=== PATIENT | male | born 1940 | race Caucasian/White ===

== ENCOUNTER → 2017-01-14 | Outpatient (CLI) | payer MEDICARE ==
--- NOTE | 2017-01-14 12:25 | REP ---
MRI BRAIN WITHOUT CONTRAST: HISTORY: Memory loss. COMPARISON: CT 07/07/2016. Areas of increased signal intensity on T2-weighted images are present in the periventricular and subcortical white matter. This represents small vessel ischemic disease. There is no intraparenchymal hemorrhage, infarct, mass or midline shift. The ventricular system and cortical sulci are dilated consistent with mild volume loss. There is no extracerebral collection. The sinuses are clear. IMPRESSION: 1. Small vessel ischemic disease. 2. Mild volume loss. Signed by Aubrey Perla MD 01/14/2017 12:36 P
== END ==
LOC: M RAD 10:18
PROVIDERS: ATTEND Psychiatry & Neurology Neurology
DX: F09 Unspecified mental disorder due to known physiological condition (principal); G93.9 Disorder of brain, unspecified; I73.9 Peripheral vascular disease, unspecified

== ENCOUNTER → 2017-02-10 | Outpatient (CLI) | payer MEDICARE | LOC: M LAB 15:55 | PROVIDERS: ATTEND Urology | DX: Z85.46 Personal history of malignant neoplasm of prostate (principal) ==

== ENCOUNTER 2020-09-27 11:55 | Inpatient (IN) | payer MEDICARE ==
[~2020-09-27] VITALS: Ht 172.7 cm; Wt 87.7 kg
--- NOTE | 2020-09-27 12:30 | REP ---
INDICATION: trauma. COMPARISON: None. TECHNIQUE: Helical scanning is acquired and overlapping 2 mm high resolution axial images were generated and reviewed at bone and soft tissue window settings. Coronal and sagittal multiplanar re-formations images are generated. FINDINGS: There is no evidence of cervical spine element fracture. No skull base fracture is seen. Cervical vertebral body heights are preserved. Alignment is normal. Facet joints are normally aligned bilaterally at each cervical level on multiplanar re-formations images. There is no evidence of intraspinal or paraspinal hematoma. No extra vertebral abnormality is seen. There is mild degenerative disc disease several levels in the cervical spine, most pronounced at C6-7. Osteoarthritic facet changes are seen in the midcervical spine. Vascular calcification is noted. IMPRESSION: Mild degenerative spondylosis changes. Otherwise negative cervical spine CT study. No fracture seen.. <Electronically signed by Cholo Daniel > 09/27/20 2026
--- NOTE | 2020-09-27 12:33 | REP ---
INDICATION: trauma. COMPARISON: 07/07/2016 TECHNIQUE: Noncontrast brain CT with coronal soft tissue reconstructions. FINDINGS: Lateral ventricles are midline symmetric and mildly dilated proportionate to the diffuse cerebral atrophy. This atrophy is greatest in the frontal and temporal lobes. Third and 4th ventricles also proportionate. Basal ganglia symmetric. There is heterogeneous low-attenuation white matter change bilaterally consistent with chronic small vessel ischemic disease. No intracranial hemorrhage, acute infarct, mass, mass effect or edema. No extra-axial abnormal fluid collection. Brainstem is intact. Cerebellum shows some atrophy without mass. No posterior fossa bleed. There are calcifications in the vertebrobasilar arteries. Mastoids, sphenoid, frontal and visible maxillary sinuses were clear. Some of the ethmoid air cells show mucosal thickening. Skull base and calvarium show no fracture or focal lesion. Visible orbits and contents intact IMPRESSION: 1. Chronic small vessel ischemic changes, stable. No acute infarct. 2. Mild ventriculomegaly with proportionate cerebral atrophy, unchanged. No intra or extra-axial hemorrhage, mass or mass effect. 3. No fracture skull base or calvarium. Some atherosclerotic calcifications of the vertebrobasilar arteries and minor ethmoid sinus mucosal thickening. Other sinuses clear. <Electronically signed by Av Taylor > 09/27/20 [id number]
[2020-09-27 15:32] LABS: BASO % 0.3 % (0.0-1.0); HEMATOCRIT 36.5 % (42.0-52.0); HEMOGLOBIN 11.7 g/dl (13.5-17.5); LYMPH # 0.6 10^3/uL (1.5-5.0); LYMPH % 18.7 % (24.0-44.0); MEAN CORPUSCULAR HEMOGLOBIN 32.1 pg (27.0-33.0); MEAN CORPUSCULAR HGB CONC 32.1 g/dl (32.0-36.5); MONO # 0.3 10^3/uL (0.0-0.8); MONO % 8.1 % (0.0-5.0); NEUTROPHILS # 2.3 10^3/uL (1.5-8.5); NEUTROPHILS % 72.6 % (36.0-66.0); PLATELET COUNT, AUTOMATED 129 10^3/uL (150-450); RED BLOOD COUNT 3.65 10^6/uL (4.30-6.10); WHITE BLOOD COUNT 3.2 10^3/uL (4.0-10.0)
[2020-09-27 16:09] LABS: ALBUMIN 3.3 GM/DL (3.2-5.2); ALT/SGPT 62 U/L (12-78); BILIRUBIN,DIRECT 0.2 MG/DL (0.0-0.2); BILIRUBIN,TOTAL 0.8 MG/DL (0.2-1.0); TOTAL PROTEIN 6.5 GM/DL (6.4-8.2)
[2020-09-27] MEDS ORDERED: NS 1,000 ML IV SCH (17:45)
[2020-09-27 18:08] LABS: CPK CREATINE PHOSPHOKINASE 6392 U/L (39-308)
--- NOTE | 2020-09-27 18:22 | REP ---
INDICATION: fall. COMPARISON: None. TECHNIQUE: Six views. FINDINGS: There are multiple surgical clips in inferiorly in the pelvis bilaterally. Lumbar vertebral body heights are preserved. Alignment is normal. There is no evidence of spondylolysis or spondylolisthesis. There is degenerative disc narrowing at L4-5 and discogenic spurring is seen at L4-5, L3-4, and L2-3. There is osteoarthritic facet sclerosis and hypertrophy bilaterally at L4-5 and L5-S1. Pedicles and posterior elements are intact. Sacrum and SI joints are unremarkable. Psoas margins are symmetric. IMPRESSION: Degenerative disc and osteoarthritic facet changes most pronounced at L4-5. No acute bony abnormality. No fracture seen. <Electronically signed by Cholo Daniel > 09/27/20 0433
[2020-09-27] MEDS ORDERED: lisinopriL 20 MG TAB PO ONE (18:30)
[2020-09-27] MEDS ORDERED: amLODIPine 10 MG TAB PO ONE (18:30)
--- NOTE | 2020-09-27 18:35 | HPEPDOC ---
General Date of Admission 09/27/20 Date of Service: Sep 27, 2020 Chief Complaint The patient is a 80-year-old male admitted with a reason for visit of FALL. Source: Patient Exam Limitations: Dementia Timing/Duration: 24 hours Severity: Moderate History of Present Illness Patient 80 years old male with past medical history of dementia presented hospital with history of multiple mechanical falls yesterday. According to his patient developed multiple mechanical falls during 24 hours, from the evening to the morning he was on the floor for unknown period of time. His stated that for past few days he has been having increased confusion from his baseline. In ER patient was found to have negative imaging study for fracture or stroke. Also patient was found to have elevated CPK of 6300, creatinine 1.2 According to his patient haven't seen doctors for years Home Medications Scheduled Aspirin (Aspirin) 81 Mg Tab.chew, 81 MG PO DAILY, (Reported) Azithromycin (Azithromycin) 250 Mg Tablet, 250 MG PO QPM, (Reported) Donepezil HCl (Donepezil HCl) 10 Mg Tablet, 10 MG PO DAILY, (Reported) Losartan Potassium (Losartan Potassium) 50 Mg Tablet, 50 MG PO DAILY, (Reported) Lovastatin (Lovastatin) 10 Mg Tablet, 10 MG PO QHS, (Reported) Melatonin (Melatonin) 5 Mg Tablet, 5 MG PO QHS, (Reported) Memantine HCl (Memantine HCl) 10 Mg Tablet, 10 MG PO BID, (Reported) Allergies Coded Allergies: No Known Allergies (Unverified , 09/27/20) Past Medical History Medical History Dementia Family History I can't obtain due to patient's dementia Social History * Smoker: Denies Alcohol: Denies Drugs: denies A-FIB/CHADSVASC A-FIB History Current/History of A-Fib/PAF?: No Current PO Anticoag Therapy: No Review of Systems Constitutional: Reports: Weakness; Denies: Chills, Fever Eyes: Denies: Pain ENT: Denies: Head Aches Skin: Denies: Rash Pulmonary: Denies: Dyspnea Cardiovascular: Denies: Chest Pain Gastrointestinal: Denies: Nausea Genitourinary: Denies: Dysuria Hematologic: Denies: Bruising Endocrine: Denies: Polydipsia Musculoskeletal: Denies: Neck Pain Neurological: Denies: Weakness Psych: Reports: Memory Issues Physical Examination General Exam: Positive: Cooperative Eye Exam: Positive: PERRLA ENT Exam: Positive: Atraumatic Neck Exam: Positive: Supple; Negative: JVD Chest Exam: Positive: Clear to auscultation Heart Exam: Positive: Rate Normal Telemetry: Positive: No significant arrhythmia Abdomen Exam: Positive: Normal bowel sounds Extremity Exam: Negative: Clubbing, Cyanosis Skin Exam: Positive: Nl turgor and temperature Neuro Exam: Positive: Cranial Nerves 3-12 NL Psych Exam: Negative: Oriented x 3 (oriented [address] and in time) Vital Signs Vital Signs Date Time Temp Pulse Resp B/P (MAP) Pulse Ox O2 Delivery O2 Flow Rate FiO2 09/27/20 17:32 81 09/27/20 17:02 92 09/27/20 16:32 168/71 (103) 09/27/20 15:00 Room Air 09/27/20 12:15 98.8 20 Laboratory Data Labs 24H Laboratory Tests 2 09/27/20 12:41: POC Glucose (Misc Panel) 110H, POC Sodium (Misc Panel) 142, POC Potassium (Misc Panel) 4.2, POC Chloride (Misc Panel) 107, POC Total CO2 (Misc Panel) 24.0, POC Blood Urea Nitrogen (Misc Panel 31H, POC Ionized Calcium (Misc Panel) 4.1L, POC Creatinine (Misc Panel) 1.2, POC Hematocrit (Misc Panel) 37.0L 09/27/20 12:43: POC Troponin I (Misc) 0.26H 09/27/20 15:19: Immature Granulocyte % (Auto) 0.3, Neutrophils (%) (Auto) 72.6H, Lymphocytes (%) (Auto) 18.7L, Monocytes (%) (Auto) 8.1H, Eosinophils (%) (Auto) 0.0, Basophils (%) (Auto) 0.3, Neutrophils # (Auto) 2.3, Lymphocytes # (Auto) 0.6L, Monocytes # (Auto) 0.3, Eosinophils # (Auto) 0.0, Basophils # (Auto) 0.0, Nucleated Red Blood Cells % (auto) 0.0, Total Bilirubin 0.8, Direct Bilirubin 0.2, Aspartate Amino Transf (AST/SGOT) 188H, Alanine Aminotransferase (ALT/SGPT) 62, Alkaline Phosphatase 59, Total Creatine Kinase 6392H, Total Protein 6.5, Albumin 3.3, Albumin/Globulin Ratio 1.0, Thyroid Stimulating Hormone (TSH) 0.510 09/27/20 16:06: POC Troponin I (Misc) 0.19H CBC/BMP Laboratory Tests 09/27/20 15:19 Assessment/Plan Patient 80 years old male with past medical history of dementia presented hospital with history of multiple mechanical falls yesterday. According to his patient developed multiple mechanical falls during 24 hours, from the evening to the morning he was on the floor for unknown period of time. His stated that for past few days he has been having increased confusion from his ba seth. In ER patient was found to have negative imaging study for fracture or stroke. Also patient was found to have elevated CPK of 6300, creatinine 1.2 According to his patient haven't seen doctors for years Problems (1) Falls Status: Acute Problem Text: Due to deconditioning PT/OT (2) Altered mental status Status: Chronic Problem Text: Secondary to deconditioning, dehydration Frequently orientation (3) Rhabdomyolysis Status: Acute Problem Text: IV fluid Continue to monitor CPK (4) Hypertension Status: Chronic Problem Text: Lisinopril and Norvasc added Plan / VTE VTE Prophylaxis Ordered?: Yes CHRIS BORREGO DO Sep 27, 2020 18:35
[2020-09-27] MEDS ORDERED: DONE10TA90 PO (18:45)
[2020-09-27] MEDS ORDERED: LOVA10TA PO (18:45)
[2020-09-27] MEDS ORDERED: MEMA10TA19 PO (18:45)
[2020-09-27] MEDS ORDERED: AZIT-12 PO (18:45)
[2020-09-27] MEDS ORDERED: ASPI81CH33 PO (18:45)
[2020-09-27] MEDS ORDERED: LOSA50TA88 PO (18:45)
[2020-09-27] MEDS ORDERED: MELA1TAB9 PO (18:46)
[2020-09-27 19:48] LABS: VITAMIN B12 LEVEL > 2000 PG/ML
[2020-09-27 19:49] LABS: FOLATE 22.5 NG/ML
[2020-09-27] MEDS: NS 1,000 ML IV SCH (22:01)
[2020-09-27] MEDS: ACETAMINOPHEN TAB 650MG DOSE (2X325MG) PO PRN (22:02)
[2020-09-27 22:40] VITALS: BP 142/60
[2020-09-27] MEDS: SIMVASTATIN 10 MG TAB PO SCH (23:54)
[2020-09-28] MEDS: NS 1,000 ML IV SCH ×4 (03:46→21:05)
[2020-09-28] MEDS: ACETAMINOPHEN TAB 650MG DOSE (2X325MG) PO PRN ×3 (05:55→21:04)
[2020-09-28 06:00] VITALS: BP 167/56
[2020-09-28 06:43] LABS: HEMATOCRIT 32.7 % (42.0-52.0); HEMOGLOBIN 11.1 g/dl (13.5-17.5); MEAN CORPUSCULAR HEMOGLOBIN 31.4 pg (27.0-33.0); MEAN CORPUSCULAR HGB CONC 33.9 g/dl (32.0-36.5); MEAN CORPUSCULAR VOLUME 92.4 fl (80.0-96.0); PLATELET COUNT, AUTOMATED 111 10^3/uL (150-450); RED BLOOD COUNT 3.54 10^6/uL (4.30-6.10); WHITE BLOOD COUNT 5.2 10^3/uL (4.0-10.0)
[2020-09-28 07:17] LABS: ALBUMIN 3.1 GM/DL (3.2-5.2); ALT/SGPT 68 U/L (12-78); BILIRUBIN,TOTAL 0.7 MG/DL (0.2-1.0); BLOOD UREA NITROGEN 23 MG/DL (7-18); CALCIUM LEVEL 7.9 MG/DL (8.8-10.2); CARBON DIOXIDE LEVEL 22 MEQ/L (21-32); CHLORIDE LEVEL 114 MEQ/L (98-107); CREATININE FOR GFR 1.18 MG/DL (0.70-1.30); GLOMERULAR FILTRATION RATE > 60.0 (>42); GLUCOSE, FASTING 106 MG/DL (70-100); MAGNESIUM LEVEL 1.7 MG/DL (1.8-2.4); POTASSIUM SERUM 3.4 MEQ/L (3.5-5.1); SODIUM LEVEL 146 MEQ/L (136-145); TOTAL PROTEIN 6.2 GM/DL (6.4-8.2)
[2020-09-28] MEDS ORDERED: POTASSIUM CHLORIDE 10 MEQ SR TABLET PO ONE (07:45)
[2020-09-28] MEDS: MAGNESIUM GLUCONATE 500 MG TAB PO SCH (08:37)
[2020-09-28] MEDS: LOSARTAN 50MG TABLET PO SCH (08:38)
[2020-09-28] MEDS: amLODIPine 10 MG TAB PO SCH (08:38)
[2020-09-28] MEDS: ASPIRIN 81 MG CHEW TABLET PO SCH (08:38)
[2020-09-28] MEDS: HEPARIN SOD (PORCINE) 5000UNITS/ML 1ML VIAL/SYRINGE SC SCH ×2 (08:39→21:05)
[2020-09-28 08:42] LABS: CPK CREATINE PHOSPHOKINASE 5154 U/L (39-308)
[2020-09-28] MEDS ORDERED: lisinopriL 20 MG TAB PO SCH (09:00)
--- NOTE | 2020-09-28 09:15 | ECGEPIP ---
[facility] - ED Test Date: 2020-09-27 Pat Name: WALLY BRUMFIELD Department: Room: - Gender: Male Bell Maker: RADHA : 1940 Requested By: Yissel Ortega Order Number: [id number] Reading MD: Yissel Ortega Measurements Intervals [place] Rate: 60 P: 57 TN: 135 QRS: 12 QRSD: 94 T: 16 QT: 424 QTc: 425 Interpretive Statements SINUS RHYTHM NONSPECIFIC T-WAVE ABNORMALITY baseline artifact may affect interpretation No prior Electronically Signed on 09-28-2020 9:15:29 EST by Yissel Ortega
[2020-09-28] MEDS: SIMVASTATIN 10 MG TAB PO SCH (21:04)
[2020-09-28 21:19] VITALS: BP 156/62
[2020-09-29] VITALS (11 sets, daily range): BP systolic 106–172; BP diastolic 53–88; O2SAT 95
[2020-09-29] MEDS: NS 1,000 ML IV SCH (04:32)
--- NOTE | 2020-09-29 08:08 | IPNPDOC ---
Text Note Date of Service The patient was seen on 09/28/20. NOTE Subjective: No any acute events overnight. Patient developed low-grade fever. Denies chills, shortness of breath, cough, diarrhea or dysuria Objective: GENERAL APPEARANCE: NAD HEENT: no scleral icterus, no JVD, EOMI CARDIOVASCULAR: S1S2 LUNGS: CTA ABDOMEN: soft & not tender w palpitation MUSCULOSKELETAL: no cyanosis, no swelling INTEGUMENT: no generalized palor NEUROLOGICAL: cranial nerve function from 2-12 intact intact, follows commands, speech not dysarthric Assessment/Plan Patient 80 years old male with past medical history of dementia presented hospital with history of multiple mechanical falls yesterday. According to his patient developed multiple mechanical falls during 24 hours, from the evening to the morning he was on the floor for unknown period of time. His stated that for past few days he has been having increased confusion from his baseline. In ER patient was found to have negative imaging study for fracture or stroke. Also patient was found to have elevated CPK of 6300, creatinine 1.2 According to his patient haven't seen doctors for years Problems (1) Falls Due to deconditioning PT/OT (2) Altered mental status Secondary to deconditioning, dehydration superimposed with advanced dementia Frequently orientation (3) Rhabdomyolysis Continue IV fluid CPK improved (4) Hypertension Lisinopril and Norvasc added Low-grade fever Patient does not have leukocytosis, if fever persistent we'll proceed with blood culture, x-ray, respiratory panel Tylenol for now VS,Fishbone, I+O VS, Fishbone, I+O Vital Signs Date Time Temp Pulse Resp B/P (MAP) Pulse Ox O2 Delivery O2 Flow Rate FiO2 09/29/20 06:00 99.2 78 22 165/75 (105) 90 Venturi Mask 3.0 23 I&O- Last 24 Hours up to 6 AM 09/29/20 06:00 Intake Total 1535 ml Output Total 0 ml Balance 1535 ml CHRIS BORREGO DO Sep 29, 2020 08:08
[2020-09-29] MEDS ORDERED: D5W/0.45% SODIUM CHLORIDE 1,000 ML IV SCH (08:15)
[2020-09-29] MEDS: amLODIPine 10 MG TAB PO SCH (09:01)
[2020-09-29] MEDS: MAGNESIUM GLUCONATE 500 MG TAB PO SCH (09:01)
[2020-09-29] MEDS: ASPIRIN 81 MG CHEW TABLET PO SCH (09:01)
[2020-09-29] MEDS: LOSARTAN 50MG TABLET PO SCH (09:01)
[2020-09-29 09:05] LABS: HEMATOCRIT 32.6 % (42.0-52.0); HEMOGLOBIN 11.1 g/dl (13.5-17.5); LYMPH # 0.5 10^3/uL (1.5-5.0); LYMPH % 6.9 % (24.0-44.0); MEAN CORPUSCULAR HEMOGLOBIN 32.2 pg (27.0-33.0); MEAN CORPUSCULAR VOLUME 94.5 fl (80.0-96.0); MONO # 0.2 10^3/uL (0.0-0.8); MONO % 3.1 % (0.0-5.0); NEUTROPHILS # 6.3 10^3/uL (1.5-8.5); NEUTROPHILS % 88.7 % (36.0-66.0); PLATELET COUNT, AUTOMATED 108 10^3/uL (150-450); RED BLOOD COUNT 3.45 10^6/uL (4.30-6.10); WHITE BLOOD COUNT 7.1 10^3/uL (4.0-10.0)
[2020-09-29 09:31] LABS: BLOOD UREA NITROGEN 24 MG/DL (7-18); CALCIUM LEVEL 7.7 MG/DL (8.8-10.2); CARBON DIOXIDE LEVEL 25 MEQ/L (21-32); CHLORIDE LEVEL 121 MEQ/L (98-107); CREATININE FOR GFR 1.06 MG/DL (0.70-1.30); GLOMERULAR FILTRATION RATE > 60.0 (>42); GLUCOSE, FASTING 111 MG/DL (70-100); POTASSIUM SERUM 3.6 MEQ/L (3.5-5.1); SODIUM LEVEL 153 MEQ/L (136-145)
--- NOTE | 2020-09-29 09:53 | REP ---
INDICATION: PNA?. COMPARISON: None. TECHNIQUE: AP AND LATERAL SEMI-ERECT FINDINGS: LUNGS ARE MILDLY HYPOINFLATED. THERE ARE EXTENSIVE THE CONSOLIDATIONS INVOLVING BOTH LUNGS WITH HEAVIEST INFILTRATES IN THE LEFT MID LOWER LUNG ZONE BUT MORE DIFFUSELY ON THE RIGHT. NO GROSS EFFUSION. RELATIVE SPARING OF LEFT LUNG APEX. HEART SIZE MILDLY PROMINENT EVEN ALLOWING FOR HYPOINFLATED PORTABLE TECHNIQUE TORTUOUS AORTA. BONES DEMINERALIZED WITH DEGENERATIVE CHANGES SPINE AND SHOULDERS.. IMPRESSION: 1. EXTENSIVE BILATERAL INFILTRATES RIGHT GREATER THAN LEFT BUT THE CONSOLIDATION IS MORE DENSE IN THE LEFT MID AND LOWER LUNG ZONE. NO GROSS EFFUSION. OTHER LUNG LESIONS COULD CLEARLY BE OBSCURED WITH THIS APPEARANCE. 2. SOME CARDIOMEGALY NOTED. TORTUOUS AORTA. DEGENERATIVE CHANGES SPINE AND SHOULDERS WITH DEMINERALIZATION. <Electronically signed by Av Taylor > 09/29/20 3038
[2020-09-29] MEDS: HEPARIN SOD (PORCINE) 5000UNITS/ML 1ML VIAL/SYRINGE SC SCH (10:04)
[2020-09-29] MEDS: cefTRIAXone SOD 1 GM in D5W MINI-BAG PLUS 50 ML IV SCH ×2 (10:11→20:34)
[2020-09-29] MEDS ORDERED: D5W/LR 1,000 ML IV SCH (11:30)
[2020-09-29] MEDS ORDERED: ALBUTEROL 90 MCG/ACT 8GM HFA INHALER INH PRN (11:45)
[2020-09-29] MEDS: AZITHROMYCIN INJ 500 MG, VIAL MATE ADAPTER 1 EACH in D5W 250 ML IV SCH (11:55)
[2020-09-29] MEDS ORDERED: FUROSEMIDE 40MG/4ML VIAL (J1940) IV ONE ×2 (12:30→17:00)
[2020-09-29 12:36] LABS: ABG HCO3 22.2 MEQ/L (22.0-26.0); ABG PARTIAL PRESSURE CO2 31.6 mmHg (35.0-45.0); ABG PARTIAL PRESSURE O2 59.5 mmHg (75.0-100.0); ABG STANDARD HCO3 23.6 MEQ/L (22.0-26.0); ABG TOTAL CO2 23.1 MEQ/L (23.0-31.0); ABG pH (ARTERIAL) 7.464 UNITS (7.350-7.450)
[2020-09-29] MEDS: ACETAMINOPHEN TAB 650MG DOSE (2X325MG) PO PRN ×2 (12:42→17:58)
[2020-09-29] MEDS: IPRATROPIUM 0.5MG/ALBUTEROL 2.5MG INH SOL UD 3ML (DUONEB) INH SCH ×4 (12:50→23:43)
--- NOTE | 2020-09-29 13:52 | IPNPDOC ---
Text Note Date of Service The patient was seen on 09/29/20. NOTE Subjective: Patient was febrile overnight with dyspnea. His oxygen requirements increased to 3 L of oxygen Objective: GENERAL APPEARANCE: NAD HEENT: no scleral icterus, no JVD, EOMI CARDIOVASCULAR: S1S2 LUNGS: Mild rales bilaterally, diminished lung sounds ABDOMEN: soft & not tender w palpitation MUSCULOSKELETAL: +2 leg swelling INTEGUMENT: no generalized palor NEUROLOGICAL: cranial nerve function from 2-12 intact intact, follows commands, speech not dysarthric Assessment/Plan Patient 80 years old male with past medical [facility] of [facility] with history of multiple mechanical falls yesterday. According to his patient developed multiple mechanical falls during 24 hours, from the evening to the morning he was on the floor for unknown period of time. His stated that for past few days he has been having increased confusion from his baseline. In ER patient was found to have negative imaging study for fracture or stroke. Also patient was found to have elevated CPK of 6300, creatinine 1.2 According to his patient haven't seen doctors for years Dyspnea Most likely secondary to volume overload due to intensive hydration secondary to rhabdomyolysis. Patient does not have leukocytosis Lasix IV Stopped fluid Due to fever and dyspnea I will proceed with CT chest Procalcitonin ordered Azithromycin and ceftriaxone started Problems Falls Due to deconditioning PT/OT Altered mental status/metabolic encephalopathy Secondary to deconditioning, dehydration superimposed with advanced dementia Frequently orientation Rhabdomyolysis CPK improved Hypertension Lisinopril and Norvasc added Low-grade fever blood culture, respiratory panel ordered Tylenol for now VS,Fishbone, I+O VS, Fishbone, I+O Laboratory Tests 09/29/20 08:30 Vital Signs Date Time Temp Pulse Resp B/P (MAP) Pulse Ox O2 Delivery O2 Flow Rate FiO2 09/29/20 12:09 3.0 24 09/29/20 11:56 101.6 71 24 152/67 (95) 91 Non-Rebreather I&O- Last 24 Hours up to 6 AM 09/29/20 06:00 Intake Total 1535 ml Output Total 0 ml Balance 1535 ml CHRIS BORREGO DO Sep 29, 2020 13:52
[2020-09-29 15:09] LABS: ALBUMIN 2.9 GM/DL (3.2-5.2); ALT/SGPT 89 U/L (12-78); BILIRUBIN,DIRECT 0.4 MG/DL (0.0-0.2); BILIRUBIN,TOTAL 0.8 MG/DL (0.2-1.0); TOTAL PROTEIN 6.1 GM/DL (6.4-8.2)
[2020-09-29] MEDS: dexameTHASONE 4 MG/ML 1ML VIAL (J1100 PER 1MG) IV SCH (15:24)
[2020-09-29] MEDS ORDERED: REMDESIVIR (INVESTIGATIONAL) 200 MG in NS 210 ML IV ONE (17:00)
[2020-09-29 17:26] LABS: INR 1.14; PROTHROMBIN TIME 14.9 SECONDS (12.5-14.3)
[2020-09-29 17:27] LABS: FIBRINOGEN 789 MG/DL (221-452); PARTIAL THROMBOPLASTIN TIME 39.9 SECONDS (24.2-38.5)
[2020-09-29 17:28] LABS: FIBRINOGEN 776 MG/DL (221-452); INR 1.22; PROTHROMBIN TIME 15.7 SECONDS (12.5-14.3)
[2020-09-29 17:29] LABS: PARTIAL THROMBOPLASTIN TIME 41.1 SECONDS (24.2-38.5)
[2020-09-29 17:49] LABS: D-DIMER QUANT > 4000 ng/ml (<500)
[2020-09-29] MEDS ORDERED: SODIUM CHLORIDE 0.9% INJ 10 ML SYR IV ONE (19:00)
[2020-09-29] MEDS: ENOXAPARIN 40MG/0.4ML SYRINGE (J1650 PER 10MG) SC SCH (20:34)
[2020-09-29 22:00] LABS: CALCIUM LEVEL 7.9 MG/DL (8.8-10.2); CREATININE FOR GFR 1.36 MG/DL (0.70-1.30); GLOMERULAR FILTRATION RATE 53.8 (>42); POTASSIUM SERUM 3.6 MEQ/L (3.5-5.1)
[2020-09-29 22:42] LABS: ALBUMIN 3.1 GM/DL (3.2-5.2); BILIRUBIN,DIRECT 0.3 MG/DL (0.0-0.2); BILIRUBIN,TOTAL 0.8 MG/DL (0.2-1.0); CALCIUM LEVEL 7.8 MG/DL (8.8-10.2); CK-MB VALUE MASS 5.1 NG/ML (<3.6); CREATININE FOR GFR 1.28 MG/DL (0.70-1.30); GLOMERULAR FILTRATION RATE 57.7 (>42); MB/CK RELATIVE INDEX 0.09 (< OR =4); POTASSIUM SERUM 3.4 MEQ/L (3.5-5.1); TOTAL PROTEIN 6.5 GM/DL (6.4-8.2); TROPONIN I 0.43 NG/ML (< 0.10)
[2020-09-30] VITALS (24 sets, daily range): BP systolic 101–149; BP diastolic 48–75; O2SAT 89–96
[2020-09-30 00:02] LABS: C REACTIVE PROTEIN QUANTITATIV 24.4 MG/DL (0.00-0.30)
[2020-09-30 03:12] LABS: HEMOGLOBIN 11.3 g/dl (13.5-17.5); LYMPH # 0.5 10^3/uL (1.5-5.0); LYMPH % 4.7 % (24.0-44.0); MEAN CORPUSCULAR HEMOGLOBIN 31.5 pg (27.0-33.0); MEAN CORPUSCULAR HGB CONC 34.2 g/dl (32.0-36.5); MEAN CORPUSCULAR VOLUME 91.9 fl (80.0-96.0); MONO # 0.2 10^3/uL (0.0-0.8); MONO % 1.5 % (0.0-5.0); PLATELET COUNT, AUTOMATED 119 10^3/uL (150-450); RED BLOOD COUNT 3.59 10^6/uL (4.30-6.10); WHITE BLOOD COUNT 9.7 10^3/uL (4.0-10.0)
[2020-09-30 03:48] LABS: C REACTIVE PROTEIN QUANTITATIV 26.9 MG/DL (0.00-0.30); INR 1.12; PROTHROMBIN TIME 14.7 SECONDS (12.5-14.3); TROPONIN I 0.36 NG/ML (< 0.10)
[2020-09-30 03:49] LABS: PARTIAL THROMBOPLASTIN TIME 40.1 SECONDS (24.2-38.5)
[2020-09-30 04:05] LABS: D-DIMER QUANT 3833.89 ng/ml (<500)
[2020-09-30] MEDS: IPRATROPIUM 0.5MG/ALBUTEROL 2.5MG INH SOL UD 3ML (DUONEB) INH SCH ×5 (04:15→20:41)
[2020-09-30] MEDS: ACETAMINOPHEN TAB 650MG DOSE (2X325MG) PO PRN ×2 (05:15→22:24)
[2020-09-30 07:38] LABS: ALBUMIN 2.7 GM/DL (3.2-5.2); BILIRUBIN,DIRECT 0.3 MG/DL (0.0-0.2); BILIRUBIN,TOTAL 0.6 MG/DL (0.2-1.0); CALCIUM LEVEL 8.1 MG/DL (8.8-10.2); CREATININE FOR GFR 1.43 MG/DL (0.70-1.30); GLOMERULAR FILTRATION RATE 50.8 (>42); MAGNESIUM LEVEL 1.7 MG/DL (1.8-2.4); TOTAL PROTEIN 6.8 GM/DL (6.4-8.2)
[2020-09-30] MEDS ORDERED: D5W 1,000 ML IV SCH (08:00)
[2020-09-30] MEDS ORDERED: POTASSIUM CHLORIDE 10 MEQ SR TABLET PO ONE (09:00)
[2020-09-30] MEDS ORDERED: KCL 10MEQ/100ML SWI (KRUN) 10 MEQ in IV 1 EA IV ONE (09:00)
[2020-09-30] MEDS: ASPIRIN 81 MG CHEW TABLET PO SCH (09:11)
[2020-09-30] MEDS: amLODIPine 10 MG TAB PO SCH (09:11)
[2020-09-30] MEDS: LOSARTAN 50MG TABLET PO SCH (09:13)
[2020-09-30] MEDS: MAGNESIUM GLUCONATE 500 MG TAB PO SCH (09:13)
[2020-09-30] MEDS: dexameTHASONE 4 MG/ML 1ML VIAL (J1100 PER 1MG) IV SCH (09:14)
[2020-09-30] MEDS: ENOXAPARIN 40MG/0.4ML SYRINGE (J1650 PER 10MG) SC SCH ×2 (09:14→20:26)
[2020-09-30] MEDS: cefTRIAXone SOD 1 GM in D5W MINI-BAG PLUS 50 ML IV SCH ×2 (09:15→20:26)
[2020-09-30 10:53] LABS: CALCIUM LEVEL 8.7 MG/DL (8.8-10.2); CREATININE FOR GFR 1.48 MG/DL (0.70-1.30); GLOMERULAR FILTRATION RATE 48.8 (>42); POTASSIUM SERUM 3.5 MEQ/L (3.5-5.1)
--- NOTE | 2020-09-30 11:25 | IPNPDOC ---
Text Note Date of Service The patient was seen on 09/30/20. NOTE Subjective: Patient continues to have high oxygen requirements in the ICU set tings. Low-grade fever overnight Objective: GENERAL APPEARANCE: NAD HEENT: no scleral icterus, no JVD, EOMI CARDIOVASCULAR: S1S2 LUNGS: Mild rales bilaterally, diminished lung sounds ABDOMEN: soft & not tender w palpitation MUSCULOSKELETAL: +2 leg swelling INTEGUMENT: no generalized palor NEUROLOGICAL: cranial nerve function from 2-12 intact intact, follows commands, speech not dysarthric Assessment/Plan Patient 80 years old male with past medical history of dementia presented hospital with history of multiple mechanical falls yesterday. According to his patient developed multiple mechanical falls during 24 hours, from the evening to the morning he was on the floor for unknown period of time. His stated that for past few days he has been having increased confusion from his ba seline. In ER patient was found to have negative imaging study for fracture or stroke. Also patient was found to have elevated CPK of 6300, creatinine 1.2 According to his patient haven't seen doctors for years. Patient was tested positive for COVID 19 Acute hypoxemic respiratory failure Secondary to viral pneumonia due to COVID 19 Viral pneumonia due to COVID 19 Labs ordered according to Covid protocol. Started steroids, anticoagulation therapy. I discussed the case with Dr. Whitney, we started remdesevir X-ray showed EXTENSIVE BILATERAL INFILTRATES RIGHT GREATER THAN LEFT BUT THE CON SOLIDATION IS MORE DENSE IN THE LEFT MID AND LOWER LUNG ZONE. NO GROSS EFFUSION Will continue antibiotics, await procalcitonin result Mechanical falls Due to deconditioning PT/OT Altered mental status/metabolic encephalopathy Multifactorial. Due to infectious process superimposed with advanced dementia Rhabdomyolysis CPK improved Due to hypervolemia we stopped the fluid yesterday Hypernatremia Sodium 150 Gentle IV fluid D5 half normal saline Hypertension Lisinopril and Norvasc added Low-grade fever Tylenol for now VS,Fishbone, I+O VS, Fishbone, I+O Laboratory Tests 09/29/20 17:03 09/29/20 21:20 09/30/20 02:30 09/30/20 10:00 Vital Signs Date Time Temp Pulse Resp B/P (MAP) Pulse Ox O2 Delivery O2 Flow Rate FiO2 09/30/20 10:00 99.9 86 30 149/66 (93) 93 HVNI-Vapotherm 40.0 75 I&O- Last 24 Hours up to 6 AM 09/30/20 06:00 Intake Total 1035 ml Output Total 1800 ml Balance -765 ml CHRIS BORREGO DO Sep 30, 2020 11:25
[2020-09-30] MEDS: AZITHROMYCIN INJ 500 MG, VIAL MATE ADAPTER 1 EACH in D5W 250 ML IV SCH (12:08)
[2020-09-30] MEDS: PANTOPRAZOLE 40MG VIAL (C9113 PER 1) IV SCH (12:09)
[2020-09-30] MEDS ORDERED: D5W/0.45% SODIUM CHLORIDE 1,000 ML IV SCH (12:15)
[2020-09-30 16:20] LABS: CALCIUM LEVEL 8.1 MG/DL (8.8-10.2); CREATININE FOR GFR 1.35 MG/DL (0.70-1.30); GLOMERULAR FILTRATION RATE 54.3 (>42); POTASSIUM SERUM 3.4 MEQ/L (3.5-5.1); TROPONIN I 0.24 NG/ML (< 0.10)
[2020-09-30] MEDS: REMDESIVIR (INVESTIGATIONAL) 100 MG in NS 230 ML IV SCH (18:07)
[2020-09-30] MEDS: SODIUM CHLORIDE 0.9% INJ 10 ML SYR IV SCH (19:30)
[2020-09-30 23:26] LABS: CALCIUM LEVEL 7.5 MG/DL (8.8-10.2); CREATININE FOR GFR 1.29 MG/DL (0.70-1.30); GLOMERULAR FILTRATION RATE 57.2 (>42); POTASSIUM SERUM 3.6 MEQ/L (3.5-5.1)
[2020-10-01] VITALS (64 sets, daily range): BP systolic 76–169; BP diastolic 45–85
[2020-10-01] MEDS: IPRATROPIUM 0.5MG/ALBUTEROL 2.5MG INH SOL UD 3ML (DUONEB) INH SCH ×3 (00:12→08:00)
[2020-10-01 05:23] LABS: BASO % 0.2 % (0.0-1.0); EOS % 0.1 % (0.0-3.0); HEMATOCRIT 33.1 % (42.0-52.0); HEMOGLOBIN 11.4 g/dl (13.5-17.5); LYMPH # 0.4 10^3/uL (1.5-5.0); LYMPH % 3.9 % (24.0-44.0); MEAN CORPUSCULAR HEMOGLOBIN 31.6 pg (27.0-33.0); MEAN CORPUSCULAR HGB CONC 34.4 g/dl (32.0-36.5); MEAN CORPUSCULAR VOLUME 91.7 fl (80.0-96.0); MONO # 0.3 10^3/uL (0.0-0.8); MONO % 2.7 % (0.0-5.0); NEUTROPHILS # 8.8 10^3/uL (1.5-8.5); NEUTROPHILS % 92.6 % (36.0-66.0); PLATELET COUNT, AUTOMATED 139 10^3/uL (150-450); RED BLOOD COUNT 3.61 10^6/uL (4.30-6.10); WHITE BLOOD COUNT 9.5 10^3/uL (4.0-10.0)
[2020-10-01 05:34] LABS: INR 1.21; PROTHROMBIN TIME 15.6 SECONDS (12.5-14.3)
[2020-10-01 05:35] LABS: PARTIAL THROMBOPLASTIN TIME 41.8 SECONDS (24.2-38.5)
[2020-10-01 05:49] LABS: ALBUMIN 2.5 GM/DL (3.2-5.2); BILIRUBIN,DIRECT 0.4 MG/DL (0.0-0.2); BILIRUBIN,TOTAL 0.6 MG/DL (0.2-1.0); MAGNESIUM LEVEL 1.9 MG/DL (1.8-2.4); TOTAL PROTEIN 5.9 GM/DL (6.4-8.2)
[2020-10-01 05:51] LABS: CALCIUM LEVEL 7.8 MG/DL (8.8-10.2); CREATININE FOR GFR 1.26 MG/DL (0.70-1.30); D-DIMER QUANT 3490.92 ng/ml (<500); GLOMERULAR FILTRATION RATE 58.8 (>42); POTASSIUM SERUM 3.4 MEQ/L (3.5-5.1); TROPONIN I 0.15 NG/ML (< 0.10)
[2020-10-01] MEDS: PANTOPRAZOLE 40MG VIAL (C9113 PER 1) IV SCH (08:05)
[2020-10-01] MEDS: LOSARTAN 50MG TABLET PO SCH (08:06)
[2020-10-01] MEDS: dexameTHASONE 4 MG/ML 1ML VIAL (J1100 PER 1MG) IV SCH (08:06)
[2020-10-01] MEDS: ASPIRIN 81 MG CHEW TABLET PO SCH (08:06)
[2020-10-01] MEDS: ENOXAPARIN 40MG/0.4ML SYRINGE (J1650 PER 10MG) SC SCH (08:06)
[2020-10-01] MEDS: MAGNESIUM GLUCONATE 500 MG TAB PO SCH (08:07)
[2020-10-01] MEDS: amLODIPine 10 MG TAB PO SCH (08:08)
[2020-10-01] MEDS ORDERED: PROPOFOL 1,000 MG/100 ML VIAL As Ordered ONE (08:40)
[2020-10-01] MEDS ORDERED: GLUCAGON INJ 1MG VIAL SC PRN (09:00)
[2020-10-01] MEDS: ALBUTEROL 90 MCG/ACT 8GM HFA INHALER INH SCH ×4 (09:00→21:00)
[2020-10-01] MEDS ORDERED: GLUCOSE 4GM CHEW TABLET PO PRN (09:00)
[2020-10-01] MEDS ORDERED: DEXTROSE 50% 50 ML SYRINGE IV PRN (09:00)
[2020-10-01] MEDS ORDERED: ENOXAPARIN 30MG/0.3ML SYRINGE (J1650 PER 10MG) SC ONE (09:15)
[2020-10-01 10:00] LABS: HEPATITIS B SURFACE ANTIGEN NEGATIVE (NEGATIVE)
[2020-10-01 10:29] LABS: HIV 1&2 SCREEN CENTAUR NEGATIVE (NEGATIVE)
[2020-10-01] MEDS: CHLORHEXIDINE GLUCONATE 0.12 % 15ML UDC (PERIDEX ORAL RINSE) MT SCH ×2 (10:58→20:07)
[2020-10-01] MEDS: cefTRIAXone SOD 1 GM in D5W MINI-BAG PLUS 50 ML IV SCH ×2 (10:59→20:07)
--- NOTE | 2020-10-01 11:04 | REP ---
INDICATION: S/P Intubation. COMPARISON: 09/29/2020 TECHNIQUE: AP portable semi-erect. FINDINGS: There is an endotracheal tube now present with its tip abutting the right side of the tracheal airway and about 4 cm above the pola. Nasogastric tube is now placed with its tip the into the stomach in the left upper quadrant. The proximal port is below the GE junction. The lung beal show diffuse interstitial alveolar infiltrates. The density of the infiltrates appears lessened and there is some some improvement in inspiration for this image. There are no other changes. IMPRESSION: Status post intubation with the endotracheal tube abutting the tracheal sidewall on the right and its tip 4 cm from the pola. Nasogastric tube into the stomach in the left upper quadrant. Better level of inflation overall and some of mild decreased in parenchymal density of the diffuse infiltrates. <Electronically signed by Av Taylor > 10/01/20 1100
[2020-10-01 11:16] LABS: ABG BASE EXCESS 0.3 (-2.0-2.0); ABG HCO3 26.4 MEQ/L (22.0-26.0); ABG O2 SATURATION 96.3 % (95.0-99.0); ABG PARTIAL PRESSURE CO2 48.8 mmHg (35.0-45.0); ABG PARTIAL PRESSURE O2 91.5 mmHg (75.0-100.0); ABG STANDARD HCO3 24.7 MEQ/L (22.0-26.0); ABG TOTAL CO2 27.9 MEQ/L (23.0-31.0); ABG pH (ARTERIAL) 7.351 UNITS (7.350-7.450)
[2020-10-01] MEDS: KCL 40MEQ IN D5/0.45NS 1000ML 1,000 ML IV SCH ×2 (11:16→20:09)
--- NOTE | 2020-10-01 11:50 | CCN ---
DATE: 09/29/2020 Critical care time was 48 minutes. Most of this was in regard to treatment for COVID. Of note, all the exam from the patient was remote from the door. I could see clearly through the glass door and discuss with the nursing and the patient what was going on. The patient himself if quite anxious, shivering at times. Transferred to the intensive care unit (ICU) for worsening respiratory failure, hypoxia. Apparently he had been admitted for falls then later developed fever. Evaluated for the possibility of COVID, screened positive. Chest x-ray was obtained showing diffuse infiltrate bilaterally, and he has had progressive increasing oxygen requirements over this time. Of note, the patient was receiving continuous intravenous (IV) fluids because of an elevated creatine kinase (CK). He does have mild elevation in his liver function tests (LFTs). Given his severity of hypoxia and the high likelihood of from COVID based on age and comorbidities, it has been determined that although he does have some elevation in his LFTs, that we will start remdesivir. The patient is awake, able to answer some questions and other times is confused. At this point in time he does not demonstrate any tachypnea while on Vapotherm, currently requiring 40 liters at 0.75 FiO2. He has already been started on higher-dose Lovenox. I have discontinued his statin therapy because of his liver enzymes and elevated CK. He is currently on Decadron. He is also on ceftriaxone, azithromycin, which we will de-escalate likely in the next couple days if he does not show any signs of concomitant bacterial infection. PHYSICAL EXAMINATION: Temperature is 100.6, pulse is 71, respiratory rate 18-25, blood pressure is 152/67, oxygen saturation as mentioned above GENERAL: Agitated but consolable. He appears volume overloaded. No dry mucous membranes. PULMONARY: Breath sounds reveal rales bilaterally EXTREMITIES: Pitting edema with dependent venous stasis changes. As mentioned, this is externally from the room. LABORATORY EVALUATION: Shows a white blood cell count of 7.1, up from 3.2 on September 27, hemoglobin 11.1, neutrophils 88.7. Sodium is up to 153 with an admission sodium of 142 two days ago. Potassium is 3.6, chloride 12. The sodium and chloride elevation likely from fluid administration. Carbon dioxide level is 25, anion gap 7, BUN 24 and creatinine 1.06. Calcium is 7.7. AST has been climbing and is now 244 today with an ALT of 89. CK is down to 5115. Albumin is down to 2.9. Arterial blood gas from November 16 shows a pH of 7.46, pCO2 of 32, and a pO2 of 60 on an unknown level of oxygen. Chest x-ray shows diffuse infiltrate consistent with COVID. Also differential incudes pulmonary edema, cadiogenic versus noncardiogenic. IMPRESSION: Severe hypoxic respiratory failure secondary to COVID/SARS. I have started remdesivir due to the higher likelihood of and complications from COVID. I understand that this should be monitored closely while patient has elevated liver function tests (LFTs). At this point of time I have discussed it with an infectious disease colleague, and we both agree that the benefit of taking the medications outweighs the potential risk. I have stopped the statin therapy. Hopefully this will also help. At the same time, I will rule out myocardial infarction, as this has not been done. He will remain on high-dose Lovenox. Will continue antibiotic therapy until it is clear that there is no concomitant bacterial infection, especially with the fever and significant increase in leukocytosis despite this being a "normal" number. There has been a four-point elevation in the past 2 days. Overall the patient remains very ill, has a very poor prognosis. Will continue to monitor oxygen requirement and liver function testing. Critical care time was 48 minutes. This excludes all procedures. MTDD
--- NOTE | 2020-10-01 11:52 | CCN ---
DATE: 09/30/2020 CRITICAL CARE TIME: 33 minutes. This excludes all procedures. HISTORY OF PRESENT ILLNESS: I am monitoring the patient due to his COVID illness. Primary physician is on board and conducting physical exams. The patient was started on remdesivir overnight. He has been on dexamethasone, I am not exactly sure why dexamethasone was chosen over Solu-Medrol. However, I did not discontinue this. He is more hyponatremic today likely secondary to dehydration. IV Lasix was administered yesterday. Primary team has started gentle hydration. I have cautioned about the possibility of pulmonary edema. There is a slight increase in creatinine and BUN suggesting dehydration. Overall the patient has no complaints. PHYSICAL EXAMINATION: My physical exam is from the doorway to decrease exposure to limited staff. Overnight the patient's fever is trending down. Highest fever was 102.2 at 1800. This morning it is 100.4. Respiratory rate remains elevated. Pulse is 97. Blood pressure is 133/61 with a mean arterial pressure of 85. Oxygen saturation is 95% on 45 liters, FiO2 0.75. In general the patient is sleeping but easily arousable. From the doorway and the nursing evaluation, the patient has no scleral icterus. Pupils are equal and reactive to light. Mucous membranes are slightly dry. Tongue is midline. Neck is supple. Lymph: There is no cervical, supraclavicular, or axillary lymphadenopathy according to the nursing evaluation. Pulmonary: Breath sounds are abnormal with decreased air entry. Crackles at the bases. No wheeze or rhonchi. Cardiac: Tachycardic at times but currently regular. S1, S2, without audible murmurs, rubs or gallops. LABORATORY: Laboratory evaluation shows sodium 150, potassium 3.0, chloride 115, bicarb 28, BUN 27, creatinine 1.43. Fasting glucose is 161. Calcium is 8.1, magnesium 1.7. Ferritin is elevated at 1,064. Total bilirubin is normal. AST is down from 278 last evening to 222. ALT is down to 95. LDH is down to 653. CK was not checked this morning. I have already added it to the a.m. labs. BNP is decreased. However, troponin is also trending down from a max of 0.43 and I have ordered a procalcitonin this morning which is still pending. White blood cell count is 9.7 up from admission white blood cell count of 3.2. Hemoglobin is 11.3, platelet count of 119. Chest x-ray not performed this morning to avoid exposure. IMPRESSION/PLAN: 1. COVID-induced hypoxia, high risk need for intubation. I will closely monitor oxygen saturations, trying to avoid intubation if at all possible. According to the patient's advanced directives, he wishes to have a trial of intubation but is otherwise DO NOT RESUSCITATE. Remdesivir was started yesterday. Remains on steroids. 2. Hypernatremia likely secondary to some dehydration. Primary team started gentle hydration. No further diuresis should be attempted at this point in time. 3. Renal failure, mild. We will continue to monitor. Delicate fluid balance in attempts to keep him on the dry side in order to avoid intubation. 4. Liver impairment, slight minimal decline in AST and ALT. We will continue to monitor, especially while on Remdesivir. 5. Elevated CK. We will recheck this morning. 6. Deep venous thrombosis (DVT) prophylaxis. The patient is on Lovenox 40 mg subcu every 12 hours. 7. Gastrointestinal (GI) prophylaxis. I will add this morning. The patient remains critically ill. At this point in time I am not physically examining the patient. I am doing so from the doorway and having nurses input. This is to avoid exposure to the critical care physician, staff. However, the primary team has been performing physical exam on a daily basis. YONATHAN
[2020-10-01] MEDS: MIDAZOLAM INJ 2MG/2ML VIAL (J2250 PER 1MG) IV PRN ×2 (11:56→12:17)
--- NOTE | 2020-10-01 11:56 | CCN ---
DATE: 10/01/2020 CRITICAL CARE TIME: One hour and 37 minutes, this excludes all procedures. SUBJECTIVE: On my arrival, the patient had been hypoxic since 4 a.m. and I was not notified of this. His oxygen saturations had not been above 85% and when I went to see the patient, he was down to 75% on 40 liters on 100% FiO2. With some help from the nurse inside the room, oxygen saturation improved to approximately 86%. I called the COVID intubation team for intubation and they are at bedside to intubate. The patient appeared somnolent, is agitated at times, and continues with dementia and altered mental status. OBJECTIVE: Physical examination not performed by myself. Will perform telemedicine visit after intubation. VITAL SIGNS: Temperature currently is 100.1, pulse 80, blood pressure 134/66, oxygen saturation 82% on 40 liters on 100% FiO2. GENERAL: As mentioned, vision from the door the patient is fairly sedated and obtunded. HEENT: Mucous membranes appear dry. EXTREMITIES: Left lower extremity appears erythematous with some pitting edema. No ultrasound has been performed of this lower extremity. ABDOMEN: Soft, nontender, and nondistended with no hepatosplenomegaly according to the nurse. RESPIRATORY: Rales bilaterally. CARDIAC: Reportedly regular S1, S2 without audible murmur, rub, or gallop. As mentioned above, the physical exam was performed by the nurse and observed by myself through the glass doors. I will perform a telemedicine visit with a better physical exam later this evening. LABORATORY EVALUATION: Shows hypernatremia and hypokalemia with sodium 151 and potassium 3.4, chloride 16, bicarb 27, BUN 40, creatinine 1.26 with a PT of 15.6, INR 1.2, and a PTT of 42. White blood cell count is 9.5 with a hemoglobin of 11.4, platelet count 139,000, neutrophilia of 92, ferritin of 14.6, direct bilirubin of 0.4, AST 146, ALT 83, troponin 0.15. Hypoalbuminemia 2.5. IMAGING: Chest x-ray not performed today due to decrease the risk of COVID exposure. Will perform one after intubation. IMPRESSION: 1. COVID pneumonia with severe hypoxia. Attempted to avoid intubation; however, the patient is severely hypoxic at this point in time and is not tolerating maximal Vapotherm at 40 L on 100%. I do not believe BiPAP will be anymore helpful than the Vapotherm. Therefore, we will perform intubation. I will extend his remdesivir to 10 days. He remains on dexamethasone. He remains on ceftriaxone. I discontinued the azithromycin as I do not believe it is likely contributing to any treatment of infection. 2. Hypernatremia. Now that he is intubated, we will start intravenous (IV) fluids D5 half-normal with 40 mEq of potassium. 3. Hypokalemia. Replacing intravenous (IV). 4. Lower extremity edema. He may have thrombus. D-dimer is trending down, but at high risk for clot and cannot rule out pulmonary embolism at this point in time. Therefore, we will place him on full dose anticoagulation and monitor for signs of bleeding. 5. Nutrition. Will initiate tube feedings with Jevity 1.5 ADAM with free water. 6. Deep vein thrombosis prophylaxis. Will be on full dose anticoagulation as mentioned above. 7. Gastrointestinal (GI) prophylaxis on Protonix. I attempted to contact the patients this morning prior to intubation; however, no one answered the phone. We will continue to try and contact family during the day. Edited: marci 10/01/2020 1424 MTDD
[2020-10-01] MEDS: HumaLOG INSULIN (NovoLOG) PER UNIT SC SCH ×3 (12:17→23:49)
[2020-10-01] MEDS ORDERED: VANCOMYCIN HCL 750 MG, VIAL MATE ADAPTER 1 EACH in D5W 250 ML IV ONE ×2 (13:00→14:00)
[2020-10-01] MEDS: CISATRACURIUM 200 MG in NS 480 ML IV SCH (13:57)
--- NOTE | 2020-10-01 14:33 | CCN ---
DATE: 10/01/2020 PHYSICAL EXAMINATION: I performed a Telemedicine physical exam. Pupils are 3 mm and briskly reactive. There was some static with auscultation with the Telemedicine; however, any movement of the patient caused him to desaturate to the 70% range. He has breath sounds on both sides. I am not able to auscultate any adventitious breath sounds; however, this may be due to the static from the Telemedicine stethoscope.. Heart sounds were regular. I am unable to auscultate murmur, rub or gallop. Abdominal sounds were hypoactive. The left lower extremity on visualization was significantly more erythematous than the right. There is good Doppler flow to the left lower extremity at the dorsalis pedis and posterior tib. PLAN: After this physical exam I am going to add on vancomycin only due to the possibility of cellulitis in a hospitalized patient. His left leg is significantly more erythematous than his right. We will continue to monitor for further signs of an infection. Alternatively this could represent thromboembolic disease. I have already provided him with full dose anticoagulation this morning. We will continue this. MTDD
[2020-10-01 14:54] LABS: CALCIUM LEVEL 7.7 MG/DL (8.8-10.2); CREATININE FOR GFR 1.28 MG/DL (0.70-1.30); GLOMERULAR FILTRATION RATE 57.7 (>42); POTASSIUM SERUM 3.4 MEQ/L (3.5-5.1)
[2020-10-01] MEDS: propofoL 1,000 MG in IV 1 EA IV SCH ×2 (15:28→23:22)
[2020-10-01] MEDS: REMDESIVIR (INVESTIGATIONAL) 100 MG in NS 230 ML IV SCH (17:59)
[2020-10-01] MEDS: SODIUM CHLORIDE 0.9% INJ 10 ML SYR IV SCH (19:21)
[2020-10-01] MEDS: ENOXAPARIN 80MG/0.8ML SYRINGE (J1650 PER 10MG) SC SCH (20:08)
[2020-10-02] VITALS (31 sets, daily range): BP systolic 97–151; BP diastolic 51–77
[2020-10-02] MEDS: ALBUTEROL 90 MCG/ACT 8GM HFA INHALER INH SCH ×6 (00:40→19:49)
[2020-10-02] MEDS: VANCOMYCIN HCL 1,000 MG, VIAL MATE ADAPTER 1 EACH in D5W 250 ML IV SCH ×2 (00:53→12:47)
[2020-10-02] MEDS: KCL 40MEQ IN D5/0.45NS 1000ML 1,000 ML IV SCH ×2 (05:18→15:58)
[2020-10-02 05:59] LABS: ABG BASE EXCESS 1.1 (-2.0-2.0); ABG HCO3 27.8 MEQ/L (22.0-26.0); ABG PARTIAL PRESSURE CO2 54.7 mmHg (35.0-45.0); ABG PARTIAL PRESSURE O2 74.3 mmHg (75.0-100.0); ABG STANDARD HCO3 25.4 MEQ/L (22.0-26.0); ABG TOTAL CO2 29.5 MEQ/L (23.0-31.0); ABG pH (ARTERIAL) 7.324 UNITS (7.350-7.450)
[2020-10-02 07:04] LABS: BASO % 0.1 % (0.0-1.0); HEMATOCRIT 33.1 % (42.0-52.0); HEMOGLOBIN 11.1 g/dl (13.5-17.5); LYMPH # 0.3 10^3/uL (1.5-5.0); LYMPH % 3.2 % (24.0-44.0); MEAN CORPUSCULAR HEMOGLOBIN 32.1 pg (27.0-33.0); MEAN CORPUSCULAR HGB CONC 33.5 g/dl (32.0-36.5); MEAN CORPUSCULAR VOLUME 95.7 fl (80.0-96.0); MONO # 0.3 10^3/uL (0.0-0.8); MONO % 2.6 % (0.0-5.0); NEUTROPHILS % 93.1 % (36.0-66.0); PLATELET COUNT, AUTOMATED 137 10^3/uL (150-450); RED BLOOD COUNT 3.46 10^6/uL (4.30-6.10); WHITE BLOOD COUNT 10.7 10^3/uL (4.0-10.0)
[2020-10-02] MEDS: HumaLOG INSULIN (NovoLOG) PER UNIT SC SCH ×3 (08:02→16:56)
[2020-10-02] MEDS: PANTOPRAZOLE 40MG VIAL (C9113 PER 1) IV SCH (08:45)
[2020-10-02] MEDS: CHLORHEXIDINE GLUCONATE 0.12 % 15ML UDC (PERIDEX ORAL RINSE) MT SCH ×2 (08:45→20:00)
[2020-10-02] MEDS: ENOXAPARIN 80MG/0.8ML SYRINGE (J1650 PER 10MG) SC SCH ×2 (08:46→20:00)
[2020-10-02] MEDS: cefTRIAXone SOD 1 GM in D5W MINI-BAG PLUS 50 ML IV SCH ×2 (08:47→20:00)
[2020-10-02] MEDS: dexameTHASONE 4 MG/ML 1ML VIAL (J1100 PER 1MG) IV SCH (08:47)
[2020-10-02] MEDS: ASPIRIN 81 MG CHEW TABLET PO SCH (08:48)
[2020-10-02] MEDS: MAGNESIUM GLUCONATE 500 MG TAB PO SCH (08:48)
[2020-10-02] MEDS: propofoL 1,000 MG in IV 1 EA IV SCH (09:28)
[2020-10-02] MEDS: CISATRACURIUM 200 MG in NS 480 ML IV SCH ×2 (10:31→12:47)
--- NOTE | 2020-10-02 14:51 | REP ---
INDICATION: central line placement. COMPARISON: Comparison portable chest x-ray October 01, 2020.. TECHNIQUE: Supine AP portable exam. Single-view. FINDINGS: Endotracheal tube remains in good position at the level of the proximal clavicles. NG tube enters the left upper quadrant. Monitoring electrodes are seen. Right internal jugular central venous line has been inserted with tip projecting in the expected location of the superior vena cava. There is no evidence of pneumothorax. Extensive interstitial lung disease persists throughout the lung beal consistent with diffuse interstitial infiltrate versus edema. IMPRESSION: Extensive bilateral interstitial infiltrate versus edema. Right IJ line in place. No evidence of pneumothorax. Endotracheal and nasogastric tubes remain in place. <Electronically signed by Cholo Daniel > 10/02/20 [id number]
[2020-10-02 14:55] LABS: INR 1.31; PROTHROMBIN TIME 16.6 SECONDS (12.5-14.3)
[2020-10-02 14:56] LABS: PARTIAL THROMBOPLASTIN TIME 55.5 SECONDS (24.2-38.5)
[2020-10-02 14:58] LABS: D-DIMER QUANT 2522.27 ng/ml (<500)
[2020-10-02 15:15] LABS: ALBUMIN 2.1 GM/DL (3.2-5.2); ALT/SGPT 77 U/L (12-78); BILIRUBIN,DIRECT 0.2 MG/DL (0.0-0.2); BILIRUBIN,TOTAL 0.3 MG/DL (0.2-1.0); BLOOD UREA NITROGEN 37 MG/DL (7-18); CALCIUM LEVEL 7.5 MG/DL (8.8-10.2); CARBON DIOXIDE LEVEL 29 MEQ/L (21-32); CHLORIDE LEVEL 113 MEQ/L (98-107); CREATININE FOR GFR 0.99 MG/DL (0.70-1.30); FERRITIN 1442 NG/ML (26-388); GLOMERULAR FILTRATION RATE > 60.0 (>42); GLUCOSE, FASTING 268 MG/DL (70-100); MAGNESIUM LEVEL 2.2 MG/DL (1.8-2.4); NT-PRO BNP 715 PG/ML (<450); POTASSIUM SERUM 4.1 MEQ/L (3.5-5.1); SODIUM LEVEL 146 MEQ/L (136-145); TOTAL PROTEIN 5.2 GM/DL (6.4-8.2)
[2020-10-02] MEDS: REMDESIVIR (INVESTIGATIONAL) 100 MG in NS 230 ML IV SCH (18:43)
[2020-10-02] MEDS: SODIUM CHLORIDE 0.9% INJ 10 ML SYR IV SCH (18:44)
[2020-10-03] VITALS (35 sets, daily range): BP systolic 77–149; BP diastolic 49–92; O2SAT 91–94
[2020-10-03] MEDS: HumaLOG INSULIN (NovoLOG) PER UNIT SC SCH ×4 (00:11→17:32)
[2020-10-03] MEDS: ALBUTEROL 90 MCG/ACT 8GM HFA INHALER INH SCH ×6 (00:17→19:25)
[2020-10-03] MEDS: KCL 40MEQ IN D5/0.45NS 1000ML 1,000 ML IV SCH (01:07)
[2020-10-03] MEDS: VANCOMYCIN HCL 1,000 MG, VIAL MATE ADAPTER 1 EACH in D5W 250 ML IV SCH ×2 (01:07→12:16)
[2020-10-03] MEDS: propofoL 1,000 MG in IV 1 EA IV SCH ×4 (04:56→20:55)
[2020-10-03] MEDS: CISATRACURIUM 200 MG in NS 480 ML IV SCH (04:57)
[2020-10-03 05:00] LABS: BASO % 0.3 % (0.0-1.0); HEMATOCRIT 32.4 % (42.0-52.0); HEMOGLOBIN 10.3 g/dl (13.5-17.5); LYMPH # 0.5 10^3/uL (1.5-5.0); LYMPH % 5.3 % (24.0-44.0); MEAN CORPUSCULAR HEMOGLOBIN 30.9 pg (27.0-33.0); MEAN CORPUSCULAR HGB CONC 31.8 g/dl (32.0-36.5); MEAN CORPUSCULAR VOLUME 97.3 fl (80.0-96.0); MONO # 0.2 10^3/uL (0.0-0.8); MONO % 1.9 % (0.0-5.0); NEUTROPHILS % 89.7 % (36.0-66.0); PLATELET COUNT, AUTOMATED 177 10^3/uL (150-450); RED BLOOD COUNT 3.33 10^6/uL (4.30-6.10); WHITE BLOOD COUNT 10.1 10^3/uL (4.0-10.0)
[2020-10-03 05:12] LABS: INR 1.12; PROTHROMBIN TIME 14.6 SECONDS (12.5-14.3)
[2020-10-03 05:13] LABS: PARTIAL THROMBOPLASTIN TIME 43.4 SECONDS (24.2-38.5)
[2020-10-03 05:16] LABS: D-DIMER QUANT 2548.81 ng/ml (<500)
[2020-10-03 05:35] LABS: ALBUMIN 1.9 GM/DL (3.2-5.2); ALT/SGPT 78 U/L (12-78); BILIRUBIN,DIRECT 0.1 MG/DL (0.0-0.2); BILIRUBIN,TOTAL 0.2 MG/DL (0.2-1.0); BLOOD UREA NITROGEN 36 MG/DL (7-18); CALCIUM LEVEL 7.4 MG/DL (8.8-10.2); CARBON DIOXIDE LEVEL 29 MEQ/L (21-32); CHLORIDE LEVEL 115 MEQ/L (98-107); CREATININE FOR GFR 0.98 MG/DL (0.70-1.30); FERRITIN 1308 NG/ML (26-388); GLOMERULAR FILTRATION RATE > 60.0 (>42); GLUCOSE, FASTING 221 MG/DL (70-100); MAGNESIUM LEVEL 2.1 MG/DL (1.8-2.4); NT-PRO BNP 1176 PG/ML (<450); SODIUM LEVEL 147 MEQ/L (136-145)
[2020-10-03 05:50] LABS: ABG BASE EXCESS -1.2 (-2.0-2.0); ABG HCO3 27.1 MEQ/L (22.0-26.0); ABG O2 SATURATION 94.3 % (95.0-99.0); ABG PARTIAL PRESSURE CO2 64.2 mmHg (35.0-45.0); ABG PARTIAL PRESSURE O2 76.3 mmHg (75.0-100.0); ABG STANDARD HCO3 23.4 MEQ/L (22.0-26.0); ABG TOTAL CO2 29.1 MEQ/L (23.0-31.0); ABG pH (ARTERIAL) 7.244 UNITS (7.350-7.450)
--- NOTE | 2020-10-03 07:04 | RO ---
DATE OF OPERATION: 10/02/2020 PROCEDURE: Right internal jugular venous triple lumen catheter placement. PREOPERATIVE DIAGNOSIS: Critical illness, need for venous access. Unable to get blood draws. Unable to measure central venous pressure. POSTOPERATIVE DIAGNOSIS: Critical illness, need for venous access. Unable to get blood draws. Unable to measure central venous pressure. PROCEDURE PERFORMED BY: DUSTIN Jimenes; I observed from the door and stayed outside his COVID room. I directly observed the procedure during the entire procedure. ANESTHESIA: The patient was already sedated on mechanical ventilation. DESCRIPTION OF PROCEDURE: After a time-out was performed with two patient identifiers, identifying correct site and correct procedure, the right internal jugular (IJ) was identified under ultrasound. Chlorhexidine and full barrier precaution were used. The right IJ was then entered on the first past under direct ultrasound guidance. There was return of venous blood flow. Wire was fed through the needle and the needle was removed. A flaca in the skin was made, and the triple lumen catheter was placed via modified-Seldinger technique. This was sutured in at 15 cm. All three ports returned venous blood flow and flushed easily. Sterile impregnated-dressing was placed over the site. Postprocedure chest x-ray shows the tip of the catheter in the distal vena cava (SVC) just above the right atrium. There were no observed complications. No pneumothorax. MTDD
[2020-10-03] MEDS: MAGNESIUM GLUCONATE 500 MG TAB PO SCH (07:30)
[2020-10-03] MEDS: ENOXAPARIN 80MG/0.8ML SYRINGE (J1650 PER 10MG) SC SCH ×2 (07:30→20:31)
[2020-10-03] MEDS: ASPIRIN 81 MG CHEW TABLET PO SCH (07:30)
[2020-10-03] MEDS: CHLORHEXIDINE GLUCONATE 0.12 % 15ML UDC (PERIDEX ORAL RINSE) MT SCH ×2 (07:30→20:31)
[2020-10-03] MEDS: dexameTHASONE 4 MG/ML 1ML VIAL (J1100 PER 1MG) IV SCH (07:31)
[2020-10-03] MEDS: PANTOPRAZOLE 40MG VIAL (C9113 PER 1) IV SCH (07:31)
[2020-10-03] MEDS: MORPHINE 2 MG/ML 1ML VIAL (J2270) IV PRN (07:49)
[2020-10-03] MEDS: cefTRIAXone SOD 1 GM in D5W MINI-BAG PLUS 50 ML IV SCH ×2 (08:04→21:20)
--- NOTE | 2020-10-03 09:02 | CCN ---
DATE: 10/02/2020 SUPERVISING PHYSICIAN: Miguel Whitney D.O. SUBJECTIVE: Mr. Damian is seen in the intensive care unit (ICU). Nursing reports no new issues. The patient remains sedated on the ventilator. Nursing does note that IV access is limited and having difficulty accessing the patient for blood draws and for IV medications. The patient has been afebrile for approximately 24 hours. OBJECTIVE: VITAL SIGNS: Temperature 97.0, pulse 75, respiratory rate 20, blood pressure 151/77, pulse ox is 98% on the ventilator. The patient is on volume control with tidal volume setting of 420, respiratory rate of 20, PEEP of 10. GENERAL: Patient is sedate on mechanical ventilation. NECK: Supple. No cervical lymphadenopathy. No jugular venous distention (JVD). Trachea is midline. PULMONARY: Clear to auscultation bilaterally. No wheezes, rales, or rhonchi heard. HEART: Regular rate and rhythm. S1, S2. No murmurs appreciated. ABDOMEN: Hypoactive bowel sounds. No obvious tenderness to palpation. No hepatosplenomegaly. EXTREMITIES: Left lower extremity with diffuse erythema. No edema. SKIN: Warm and dry. LABORATORY DATA: ABG with pH of 7.3, pCO2 of 55, pO2 of 74. CBC with WBC of 10.7, hemoglobin 11.1, hematocrit 33.1, platelets 137,000. Chemistry profile was pending at the time of this dictation. ASSESSMENT AND PLAN: 1. Acute respiratory failure secondary to COVID 19 sepsis. The patient remains on mechanical ventilation. He is being monitored closely. A central line was placed for intravenous (IV) access. The patient remains on remdesivir. He is also on ceftriaxone and he is getting Decadron. 2. Suspected left lower extremity cellulitis. Patient is being treated for left lower extremity cellulitis. He is on ceftriaxone and vancomycin was added yesterday. 3. Nutrition. Patient is getting tube feeds. Total critical care time excluding all procedures is one hour and 15 minutes. [facility]
[2020-10-03 09:03] LABS: ABG BASE EXCESS -1.2 (-2.0-2.0); ABG HCO3 25.9 MEQ/L (22.0-26.0); ABG O2 SATURATION 92.5 % (95.0-99.0); ABG PARTIAL PRESSURE CO2 54.8 mmHg (35.0-45.0); ABG PARTIAL PRESSURE O2 68.2 mmHg (75.0-100.0); ABG STANDARD HCO3 23.4 MEQ/L (22.0-26.0); ABG TOTAL CO2 27.6 MEQ/L (23.0-31.0); ABG pH (ARTERIAL) 7.292 UNITS (7.350-7.450)
--- NOTE | 2020-10-03 13:50 | CCN ---
DATE: 10/03/2020 SUPERVISING PHYSICIAN: Miguel Whitney DO SUBJECTIVE: Mr. Damian is seen in the ICU. The patient remains on mechanical ventilation. The patient is afebrile. He is being sedated with propofol and Versed. Nursing denies any new issues. PHYSICAL EXAMINATION: Vital signs: Temperature is 97.2, pulse is 67, blood pressure is 107/58, respiratory rate 20, oxygen saturation is 91%. The patient is a ventilator with volume control with a tidal volume of 440 and a rate of 20, a PEEP of 10. His FiO2 is 65. General: The patient is sedate. He is on the ventilator. HEENT: Head is normocephalic, atraumatic. Pupils are equal and reactive. Moist mucous membranes. Neck: Neck is supple. No jugular venous distention (JVD). No cervical lymphadenopathy. There is a right-sided IJ central line in place. Pulmonary: Clear to auscultation bilaterally, no wheezes, rales or rhonchi. Heart: Regular rate and rhythm, S1, S2, no murmurs. Abdomen: Positive bowel sounds, soft and nontender, no rebound or guarding. Extremities: Left distal lower extremity with still some erythema. However, this is improving compared to yesterday. There is no increased warmth to palpation. Palpable dorsalis pedis pulses equal bilaterally. No edema. Skin is cool and dry. There is some swelling of the hands. LABS: ABG collected this morning at 5:43 with a pH 7.24, pCO2 of 64, pO2 of 76. ABG O2 saturation was 94.3. Central line O2 saturation was 98.6. CBC: WBC is 10.1, hemoglobin 10.3, hematocrit 32.4, platelets 177. Chemistry: Sodium 147, potassium 5.0, chloride 115, CO2 29, BUN 36, creatinine 0.98, glucose 221, lactic acid 1.8, calcium 7.4, magnesium 2.1. Ferritin is 1308. Total bilirubin is 0.2, direct bilirubin is 0.1. AST 78, ALT 78, alkaline phosphatase 62. BNP 1176. Total protein 5.0. Albumin 1.9. PT 14.6, INR 1.12, PTT 43.4, fibrinogen 687, d-dimer 2548.81. Microbiology positive for COVID-19. Blood cultures show no growth after 72 hours x2. Urine culture showed no growth. ASSESSMENT AND PLAN: 1. Acute respiratory failure secondary to COVID. The patient is getting remdesivir. He is getting dexamethasone. Ferritin levels and d-dimer levels are trending downward. Continue to monitor closely. The patient remains on mechanical ventilation. 2. Possible metabolic acidosis. Rechecking a lactic acid and an ABG. The ScvO2 was 98.6 which was similar to the ABG O2 saturation suggesting there may be shunting which could be compatible with sepsis. We are allowing for permissive hypercapnia for lung protection. Tidal volume was increased due to the acidosis. Continue to monitor closely. Paralytics were discontinued. 3. Left lower extremity erythema possibly secondary to cellulitis. The patient is being treated for cellulitis with Rocephin and Vancomycin. He is being anticoagulated with therapeutic Lovenox at 70 mg subcu q.12h. 4. Nutrition. We will increase tube feeds to 60 mL. 5. The patient remains at high risk for ICU weakness. We will order MPO boots. 6. GI prophylaxis. The patient is getting Protonix. Total Critical Care time excluding all procedures was 1 hour and 7 minutes. MTDD
[2020-10-03] MEDS: REMDESIVIR (INVESTIGATIONAL) 100 MG in NS 230 ML IV SCH (18:06)
[2020-10-03] MEDS: SODIUM CHLORIDE 0.9% INJ 10 ML SYR IV SCH (18:06)
[2020-10-03] MEDS: MIDAZOLAM INJ 2MG/2ML VIAL (J2250 PER 1MG) IV PRN (20:31)
[2020-10-04] VITALS (42 sets, daily range): BP systolic 99–138; BP diastolic 51–94; O2SAT 94
[2020-10-04] MEDS: HumaLOG INSULIN (NovoLOG) PER UNIT SC SCH ×4 (00:04→17:58)
[2020-10-04] MEDS: ALBUTEROL 90 MCG/ACT 8GM HFA INHALER INH SCH ×6 (00:06→19:52)
[2020-10-04] MEDS: MIDAZOLAM INJ 2MG/2ML VIAL (J2250 PER 1MG) IV PRN ×9 (00:10→21:59)
[2020-10-04] MEDS: VANCOMYCIN HCL 1,000 MG, VIAL MATE ADAPTER 1 EACH in D5W 250 ML IV SCH ×2 (00:11→12:54)
[2020-10-04 04:46] LABS: HEMATOCRIT 28.3 % (42.0-52.0); HEMOGLOBIN 9.4 g/dl (13.5-17.5); LYMPH # 0.2 10^3/uL (1.5-5.0); LYMPH % 3.8 % (24.0-44.0); MEAN CORPUSCULAR HGB CONC 33.2 g/dl (32.0-36.5); MEAN CORPUSCULAR VOLUME 96.3 fl (80.0-96.0); MONO # 0.2 10^3/uL (0.0-0.8); MONO % 2.8 % (0.0-5.0); NEUTROPHILS # 5.8 10^3/uL (1.5-8.5); NEUTROPHILS % 90.9 % (36.0-66.0); PLATELET COUNT, AUTOMATED 139 10^3/uL (150-450); RED BLOOD COUNT 2.94 10^6/uL (4.30-6.10); WHITE BLOOD COUNT 6.4 10^3/uL (4.0-10.0)
[2020-10-04 04:57] LABS: INR 1.25
[2020-10-04 04:58] LABS: PARTIAL THROMBOPLASTIN TIME 52.8 SECONDS (24.2-38.5)
[2020-10-04 05:00] LABS: D-DIMER QUANT 3244.18 ng/ml (<500)
[2020-10-04 05:13] LABS: ALBUMIN 1.8 GM/DL (3.2-5.2); ALT/SGPT 66 U/L (12-78); BILIRUBIN,DIRECT 0.1 MG/DL (0.0-0.2); BILIRUBIN,TOTAL 0.3 MG/DL (0.2-1.0); BLOOD UREA NITROGEN 41 MG/DL (7-18); CALCIUM LEVEL 7.2 MG/DL (8.8-10.2); CARBON DIOXIDE LEVEL 28 MEQ/L (21-32); CHLORIDE LEVEL 111 MEQ/L (98-107); CREATININE FOR GFR 1.04 MG/DL (0.70-1.30); FERRITIN 920 NG/ML (26-388); GLOMERULAR FILTRATION RATE > 60.0 (>42); GLUCOSE, FASTING 236 MG/DL (70-100); NT-PRO BNP 376 PG/ML (<450); POTASSIUM SERUM 4.4 MEQ/L (3.5-5.1); SODIUM LEVEL 147 MEQ/L (136-145); TOTAL PROTEIN 4.7 GM/DL (6.4-8.2)
[2020-10-04 05:55] LABS: ABG BASE EXCESS 0.1 (-2.0-2.0); ABG HCO3 24.9 MEQ/L (22.0-26.0); ABG O2 SATURATION 99.1 % (95.0-99.0); ABG PARTIAL PRESSURE CO2 41.2 mmHg (35.0-45.0); ABG PARTIAL PRESSURE O2 144.7 mmHg (75.0-100.0); ABG STANDARD HCO3 24.6 MEQ/L (22.0-26.0); ABG TOTAL CO2 26.2 MEQ/L (23.0-31.0)
[2020-10-04] MEDS: cefTRIAXone SOD 1 GM in D5W MINI-BAG PLUS 50 ML IV SCH ×2 (08:37→20:20)
[2020-10-04] MEDS: CHLORHEXIDINE GLUCONATE 0.12 % 15ML UDC (PERIDEX ORAL RINSE) MT SCH ×2 (08:38→19:52)
[2020-10-04] MEDS: PANTOPRAZOLE 40MG VIAL (C9113 PER 1) IV SCH (08:39)
[2020-10-04] MEDS: ASPIRIN 81 MG CHEW TABLET PO SCH (08:39)
[2020-10-04] MEDS: dexameTHASONE 4 MG/ML 1ML VIAL (J1100 PER 1MG) IV SCH (08:39)
[2020-10-04] MEDS: MAGNESIUM GLUCONATE 500 MG TAB PO SCH (08:40)
[2020-10-04] MEDS: ENOXAPARIN 80MG/0.8ML SYRINGE (J1650 PER 10MG) SC SCH ×2 (08:40→19:53)
[2020-10-04] MEDS: propofoL 1,000 MG in IV 1 EA IV SCH ×3 (09:36→21:23)
--- NOTE | 2020-10-04 13:49 | CCN ---
DATE: 10/04/2020 SUPERVISING PHYSICIAN: Miguel Whitney DO SUBJECTIVE: Mr. Damian is seen in the ICU. He remains on mechanical ventilation. Nursing notes that he did experience some oxygen desaturations during the night and required suctioning. Oxygen saturations improved once the patient was suctioned. He remains afebrile. He is now off the paralytics. PHYSICAL EXAMINATION: Vitals: Temperature is 97.8, pulse is 72, blood pressure is 117/58, respiratory rate 21. The patient is on assist control ventilation with tidal volume of 440, a rate of 20, a PEEP of 10. Current FiO2 is 90. Oxygen saturation is currently 96%. General: The patient remains on the ventilator. He is sedated. HEENT: Head is normocephalic, atraumatic. Pupils are pinpoint but are equal and reactive. Moist mucous membranes. Neck: Neck is supple. No JVD. There is a right-sided IJ central line in place. No cervical lymphadenopathy. Pulmonary: Clear to auscultation bilaterally, no wheezes, rales, rhonchi or crackles. Heart: Regular rate and rhythm, S1, S2, no murmurs. Abdomen: Positive bowel sounds, soft and nontender, no rebound or guarding. Extremities: Left distal lower extremity with still some erythema but overall appears to be improving compared to days prior. No increased warmth to palpation. The patient does have palpable dorsalis pedis pulses equal bilaterally. Very trace lower extremity edema. Skin is cool and dry. There is some swelling of the hands. LABS: ABG: pH 7.4, pCO2 41.2, pO2 144.7. WBC 6.4, hemoglobin 9.4, hematocrit 28.3, platelets 139. Sodium 147, potassium 4.4, chloride 111, CO2 28, BUN 41, creatinine 1.04, glucose 236, calcium 7.2, magnesium 2.0. Ferritin is 920. Total bilirubin is 0.3, direct bilirubin is 0.1. AST 67, ALT 66, alk phos 64. BNP 376. Total protein 4.7. Albumin 1.8. PT 16.0, INR 1.25, PTT 52.8, fibrinogen 632, d-dimer 3244.18. Micro positive for COVID-19. Blood cultures show no growth after 5 days x2. Urine culture showed no growth. ASSESSMENT AND PLAN: 1. Acute respiratory failure secondary to COVID. The patient remains on Remdesivir. He is getting dexamethasone. He remains on mechanical ventilation. The patient is still having some oxygen desaturations often related to positioning. We did attempt to turn down the FiO2 which did cause some oxygen desaturations and therefore he was turned back up to 90. There are orders to titrate. Continue to monitor patient closely. He remains on volume control with tidal volume of 440, rate of 20 and PEEP of 10. 2. Left lower extremity erythema. This is possibly cellulitis and does show improvement with Rocephin and Vancomycin. He is also being anticoagulated and is on therapeutic dose of Lovenox 70 mg subcu every 12. Continue to monitor. 3. Nutrition. The patient is getting tube feeds at 60 mL an hour with 1.5 calories. He does have 50 mL of free water every 4 hours. Total critical care time excluding all procedures was 1 hour 4 minutes. MTDD
[2020-10-04] MEDS: REMDESIVIR (INVESTIGATIONAL) 100 MG in NS 230 ML IV SCH (18:53)
[2020-10-05] VITALS (26 sets, daily range): BP systolic 97–127; BP diastolic 52–61; O2SAT 88–91
[2020-10-05] MEDS: ALBUTEROL 90 MCG/ACT 8GM HFA INHALER INH SCH ×6 (00:11→21:00)
[2020-10-05] MEDS: HumaLOG INSULIN (NovoLOG) PER UNIT SC SCH ×4 (00:15→18:02)
[2020-10-05] MEDS: VANCOMYCIN HCL 1,000 MG, VIAL MATE ADAPTER 1 EACH in D5W 250 ML IV SCH (01:03)
[2020-10-05] MEDS: MIDAZOLAM INJ 2MG/2ML VIAL (J2250 PER 1MG) IV PRN ×3 (03:31→23:11)
[2020-10-05] MEDS: propofoL 1,000 MG in IV 1 EA IV SCH ×5 (03:43→19:09)
[2020-10-05 04:07] LABS: BASO % 0.3 % (0.0-1.0); HEMATOCRIT 25.7 % (42.0-52.0); HEMOGLOBIN 8.2 g/dl (13.5-17.5); LYMPH # 0.3 10^3/uL (1.5-5.0); LYMPH % 4.3 % (24.0-44.0); MEAN CORPUSCULAR HEMOGLOBIN 30.8 pg (27.0-33.0); MEAN CORPUSCULAR HGB CONC 31.9 g/dl (32.0-36.5); MEAN CORPUSCULAR VOLUME 96.6 fl (80.0-96.0); MONO # 0.2 10^3/uL (0.0-0.8); MONO % 3.2 % (0.0-5.0); NEUTROPHILS # 5.7 10^3/uL (1.5-8.5); NEUTROPHILS % 86.7 % (36.0-66.0); PLATELET COUNT, AUTOMATED 155 10^3/uL (150-450); RED BLOOD COUNT 2.66 10^6/uL (4.30-6.10); WHITE BLOOD COUNT 6.5 10^3/uL (4.0-10.0)
[2020-10-05 04:47] LABS: ALBUMIN 1.7 GM/DL (3.2-5.2); ALT/SGPT 71 U/L (12-78); BILIRUBIN,TOTAL 0.3 MG/DL (0.2-1.0); BLOOD UREA NITROGEN 48 MG/DL (7-18); CALCIUM LEVEL 7.5 MG/DL (8.8-10.2); CARBON DIOXIDE LEVEL 31 MEQ/L (21-32); CHLORIDE LEVEL 110 MEQ/L (98-107); CREATININE FOR GFR 1.19 MG/DL (0.70-1.30); GLOMERULAR FILTRATION RATE > 60.0 (>42); GLUCOSE, FASTING 147 MG/DL (70-100); MAGNESIUM LEVEL 2.2 MG/DL (1.8-2.4); POTASSIUM SERUM 4.6 MEQ/L (3.5-5.1); SODIUM LEVEL 144 MEQ/L (136-145); TOTAL PROTEIN 5.1 GM/DL (6.4-8.2)
[2020-10-05 06:18] LABS: ABG BASE EXCESS 1.3 (-2.0-2.0); ABG HCO3 26.9 MEQ/L (22.0-26.0); ABG O2 SATURATION 92.3 % (95.0-99.0); ABG PARTIAL PRESSURE CO2 47.1 mmHg (35.0-45.0); ABG PARTIAL PRESSURE O2 65.5 mmHg (75.0-100.0); ABG STANDARD HCO3 25.6 MEQ/L (22.0-26.0); ABG TOTAL CO2 28.3 MEQ/L (23.0-31.0); ABG pH (ARTERIAL) 7.374 UNITS (7.350-7.450)
[2020-10-05] MEDS: cefTRIAXone SOD 1 GM in D5W MINI-BAG PLUS 50 ML IV SCH (08:11)
[2020-10-05] MEDS: CHLORHEXIDINE GLUCONATE 0.12 % 15ML UDC (PERIDEX ORAL RINSE) MT SCH ×2 (08:13→20:40)
[2020-10-05] MEDS: ASPIRIN 81 MG CHEW TABLET PO SCH (08:13)
[2020-10-05] MEDS: ENOXAPARIN 80MG/0.8ML SYRINGE (J1650 PER 10MG) SC SCH ×2 (08:13→20:41)
[2020-10-05] MEDS: dexameTHASONE 4 MG/ML 1ML VIAL (J1100 PER 1MG) IV SCH (08:13)
[2020-10-05] MEDS: PANTOPRAZOLE 40MG VIAL (C9113 PER 1) IV SCH (08:14)
[2020-10-05] MEDS ORDERED: IPRATROPIUM HFA INHALER 12.9 GRAMS (ATROVENT HFA) INH PRN (10:30)
[2020-10-05] MEDS: PIPERACILLIN/TAZOBACTAM SOD 3.375 GM in D5W MINI-BAG PLUS 50 ML IV SCH ×2 (12:34→18:08)
--- NOTE | 2020-10-05 15:04 | CCN ---
DATE: 10/05/2020 SUBJECTIVE: Mr. Damian was seen and examined this morning during bedside rounds. The patient remains on mechanical ventilation. Overnight, he did have some periods of agitation and required p.r.n. Versed. He is on propofol still for sedation. His FiO2 has been able to be weaned down to 70% currently. This morning, the patient is sedated. He does have gag reflex and responds to painful stimuli, but is not following commands or opening eyes spontaneously. He did have increased peak pressures noted, which improved with lavage and suctioning with some thick blood-tinged mucous. Overnight, he was noted to have increased temperature. Earlier in the morning, he had a T-max of 100.4. OBJECTIVE: VITAL SIGNS: T-max 100.4, T-current 99.1, pulse 83, respirations 27, blood pressure 115/56. O2 sat 93% on 65% FiO2. Ins 2.6 liters, out 1.1 liters, net positive 1.5 liters. GENERAL: Patient is intubated and sedated. He is responsive to painful stimuli, but does not open his eyes spontaneously or follow commands. HEENT: Normocephalic, atraumatic. Pupils are small, but equal and reactive to light. There are moist mucous membranes noted. NECK: Supple. No JVD. He has a right IJ triple lumen in place. CARDIAC: Regular rate and rhythm. Normal S1, S2. Unable to appreciate any murmurs. PULMONARY: Diminished breath sounds bilaterally with no wheezes, rales, or rhonchi noted. Some coarse ventilator breath sounds. ABDOMEN: Soft, nontender, and nondistended. There are positive bowel sounds present. EXTREMITIES: There is mild pitting edema in the lower extremities, as well as mild edema in his hands. LABORATORY DATA: WBC 6.5, hemoglobin 8.2, platelets 155,000. Chemistry with sodium 144, potassium 4.6, chloride 110, bicarb 31, BUN 48, creatinine 1.19, glucose 147, potassium 7.8. ABG with pH of 7.374, pCO2 of 47.01, pO2 of 66.5. Ferritin is trending down to 920. AST 73, ALT 71, alkaline phosphatase 67. CRP trending down to 10.10. Procalcitonin trending down to 0.43. D-dimer unchanged at 3233. ASSESSMENT: Mr. Damian is a 80-year-old male with a history of dementia who presented initially with complaints of mechanical falls. The patient was then found to be febrile, as well as hypoxic and was positive for COVID 19. Patient was started on dexamethasone, as well as remdesivir given his hypoxemic respiratory failure. He continued to have severe hypoxemia requiring intubation and mechanical ventilation. Neurologic: - History of dementia at baseline. He is currently intubated and sedated. Patient was paralyzed for his hypoxemic respiratory failure, but has now been off of paralytics and is responding to painful stimuli - Continue propofol for sedation with target [place] of 3 to 4 with Versed p.r.n. for agitation. Continue with morphine p.r.n. for pain. - With improving oxygenation, will attempt sedation vacation and weaning trial when the patient has less FiO2 requirements. Cardiac: - The patient has no reported cardiac history. He has not had any evidence of cardiac injury, although he did have an increased BNP initially. He was given diuretics initially with improvement in his BNP. - Patients blood pressure has remained normotensive and has not required any vasopressor administration. - Continue with aspirin 81 mg daily. Pulmonary: - Patient with acute hypoxemic respiratory failure in the setting of COVID pneumonia. He also had increased procalcitonin and suspected bacterial infection as well, possibly superimposed bacterial pneumonia versus a component of cellulitis. Given his severe hypoxemia and being positive for COVID, as well as with elevated D-dimer, he was also started on empiric anticoagulation with Lovenox. - Patient is continued on mechanical ventilation on volume control with settings of 440, 18, 10, and 65. We will continue to wean down his FiO2. He did have increased peak pressures today with unchanged plateau pressures, which were still in the low 20s. Patient is likely with a component of bronchospasm, as well as mucous plugging. His peak pressures did improve with lavage and suctioning of some thick blood-tinged mucous. - Will continue with bronchodilator with Albuterol and will add ipratropium HFA. - Will continue with dexamethasone for his severe COVID pneumonia. Will increase to 6 mg intravenous (IV) and continue for a 10 day total course. - Will continue with remdesivir with close monitoring of his liver function tests (LFTs). - Will continue weaning down FiO2 as tolerated. When patient is on less FiO2, will consider weaning trials at that time. - Will continue with full dose anticoagulation empirically with Lovenox. - Patients procalcitonin has been trending down. He is currently on ceftriaxone and vancomycin. He did, however, have a fever today. Therefore, would broaden his antibiotic coverage to Zosyn and continue the vancomycin. Will check a sputum culture as well. Gastrointestinal (GI): - Patient is getting tube feeds at a goal rate with no significant residuals. Will continue with tube feeds and continue with Protonix for GI prophylaxis. - Continue monitoring LFTs daily while on remdesivir. Endocrine/Renal: - Will continue to monitor his renal function. His BUN is mildly elevated. Patient has had good urine output today, which has increased. He does have some mild pitting edema; however, given his increased urine output, we will hold off on diuretics at this time; but continue to monitor this intake and output (Is & Os) with a goal of slight negative. - Will continue to monitor electrolytes and replete as needed. - Patient does have a [place] in place given his critical illness. - Will continue with fingerstick glucose checks every six hours with sliding scale coverage as needed. Deep vein thrombosis (DVT) prophylaxis: - Lovenox full dose a.c. Code status: - DO NOT RESUSCITATE (DNR) with a trial intubation. Total critical care time spend not including any procedures was approximately 55 minutes. MTDD
[2020-10-05] MEDS: REMDESIVIR (INVESTIGATIONAL) 100 MG in NS 230 ML IV SCH (19:33)
[2020-10-05] MEDS ORDERED: FUROSEMIDE 20MG/2ML VIAL (J1940) IV ONE (22:45)
[2020-10-05] MEDS: VANCOMYCIN HCL 750 MG, VIAL MATE ADAPTER 1 EACH in D5W 250 ML IV SCH (23:05)
[2020-10-06] VITALS (32 sets, daily range): BP systolic 93–130; BP diastolic 49–61; O2SAT 93–98
[2020-10-06] MEDS: VANCOMYCIN HCL 500 MG in D5W MINI-BAG PLUS 100 ML IV SCH (00:06)
[2020-10-06] MEDS: propofoL 1,000 MG in IV 1 EA IV SCH ×5 (00:07→22:36)
[2020-10-06] MEDS: ALBUTEROL 90 MCG/ACT 8GM HFA INHALER INH SCH ×6 (00:20→20:50)
[2020-10-06] MEDS: HumaLOG INSULIN (NovoLOG) PER UNIT SC SCH ×4 (01:52→18:00)
[2020-10-06] MEDS: PIPERACILLIN/TAZOBACTAM SOD 3.375 GM in D5W MINI-BAG PLUS 50 ML IV SCH ×4 (01:52→17:26)
[2020-10-06] MEDS: MIDAZOLAM INJ 2MG/2ML VIAL (J2250 PER 1MG) IV PRN ×5 (03:03→17:51)
[2020-10-06 05:31] LABS: HEMOGLOBIN 7.9 g/dl (13.5-17.5); MEAN CORPUSCULAR HEMOGLOBIN 30.7 pg (27.0-33.0); MEAN CORPUSCULAR HGB CONC 31.6 g/dl (32.0-36.5); MEAN CORPUSCULAR VOLUME 97.3 fl (80.0-96.0); PLATELET COUNT, AUTOMATED 163 10^3/uL (150-450); RED BLOOD COUNT 2.57 10^6/uL (4.30-6.10); WHITE BLOOD COUNT 7.2 10^3/uL (4.0-10.0)
[2020-10-06 05:54] LABS: ABG BASE EXCESS 0.8 (-2.0-2.0); ABG HCO3 27.6 MEQ/L (22.0-26.0); ABG O2 SATURATION 95.1 % (95.0-99.0); ABG PARTIAL PRESSURE CO2 56.3 mmHg (35.0-45.0); ABG PARTIAL PRESSURE O2 83.8 mmHg (75.0-100.0); ABG STANDARD HCO3 25.2 MEQ/L (22.0-26.0); ABG TOTAL CO2 29.3 MEQ/L (23.0-31.0); ABG pH (ARTERIAL) 7.308 UNITS (7.350-7.450)
[2020-10-06 05:59] LABS: ALBUMIN 1.6 GM/DL (3.2-5.2); BILIRUBIN,TOTAL 0.3 MG/DL (0.2-1.0); CALCIUM LEVEL 7.7 MG/DL (8.8-10.2); CREATININE FOR GFR 1.37 MG/DL (0.70-1.30); GLOMERULAR FILTRATION RATE 53.4 (>42); MAGNESIUM LEVEL 2.5 MG/DL (1.8-2.4); PHOSPHORUS LEVEL 4.6 MG/DL (2.5-4.9); POTASSIUM SERUM 4.6 MEQ/L (3.5-5.1); TOTAL PROTEIN 4.9 GM/DL (6.4-8.2)
[2020-10-06] MEDS: ASPIRIN 81 MG CHEW TABLET PO SCH (08:16)
[2020-10-06] MEDS: dexameTHASONE 4 MG/ML 1ML VIAL (J1100 PER 1MG) IV SCH (08:16)
[2020-10-06] MEDS: PANTOPRAZOLE 40MG VIAL (C9113 PER 1) IV SCH (08:19)
[2020-10-06] MEDS: ENOXAPARIN 80MG/0.8ML SYRINGE (J1650 PER 10MG) SC SCH (08:19)
[2020-10-06] MEDS: CHLORHEXIDINE GLUCONATE 0.12 % 15ML UDC (PERIDEX ORAL RINSE) MT SCH ×2 (08:19→20:43)
[2020-10-06 09:12] LABS: TROPONIN I 0.02 NG/ML (< 0.10)
[2020-10-06] MEDS ORDERED: ENOXAPARIN 30MG/0.3ML SYRINGE (J1650 PER 10MG) SC ONE (09:30)
[2020-10-06] MEDS ORDERED: ALBUTEROL 90 MCG/ACT 8GM HFA INHALER INH ONE ×2 (15:45)
[2020-10-06] MEDS: REMDESIVIR (INVESTIGATIONAL) 100 MG in NS 230 ML IV SCH (18:17)
[2020-10-06] MEDS ORDERED: IPRATROPIUM HFA INHALER 12.9 GRAMS (ATROVENT HFA) INH PRN (19:00)
[2020-10-06] MEDS: ENOXAPARIN 100MG/1ML SYRINGE (J1650 PER 10MG) SC SCH (20:43)
[2020-10-06] MEDS: VANCOMYCIN HCL 750 MG, VIAL MATE ADAPTER 1 EACH in D5W 250 ML IV SCH (22:35)
[2020-10-07] VITALS (25 sets, daily range): BP systolic 97–128; BP diastolic 49–62; O2SAT 91–97
[2020-10-07] MEDS: VANCOMYCIN HCL 500 MG in D5W MINI-BAG PLUS 100 ML IV SCH (00:09)
[2020-10-07] MEDS: HumaLOG INSULIN (NovoLOG) PER UNIT SC SCH ×4 (00:10→17:51)
[2020-10-07] MEDS: ALBUTEROL 90 MCG/ACT 8GM HFA INHALER INH SCH ×5 (00:33→20:17)
[2020-10-07] MEDS: PIPERACILLIN/TAZOBACTAM SOD 3.375 GM in D5W MINI-BAG PLUS 50 ML IV SCH ×4 (00:56→21:22)
[2020-10-07] MEDS: propofoL 1,000 MG in IV 1 EA IV SCH ×5 (02:54→20:13)
[2020-10-07] MEDS: MIDAZOLAM INJ 2MG/2ML VIAL (J2250 PER 1MG) IV PRN ×5 (02:54→11:16)
[2020-10-07 05:34] LABS: BASO % 0.1 % (0.0-1.0); HEMATOCRIT 24.2 % (42.0-52.0); HEMOGLOBIN 7.9 g/dl (13.5-17.5); LYMPH # 0.2 10^3/uL (1.5-5.0); LYMPH % 1.8 % (24.0-44.0); MEAN CORPUSCULAR HEMOGLOBIN 32.1 pg (27.0-33.0); MEAN CORPUSCULAR HGB CONC 32.6 g/dl (32.0-36.5); MEAN CORPUSCULAR VOLUME 98.4 fl (80.0-96.0); MONO # 0.3 10^3/uL (0.0-0.8); MONO % 3.4 % (0.0-5.0); NEUTROPHILS # 8.7 10^3/uL (1.5-8.5); NEUTROPHILS % 89.8 % (36.0-66.0); PLATELET COUNT, AUTOMATED 175 10^3/uL (150-450); RED BLOOD COUNT 2.46 10^6/uL (4.30-6.10); WHITE BLOOD COUNT 9.7 10^3/uL (4.0-10.0)
[2020-10-07 06:54] LABS: ALBUMIN 1.8 GM/DL (3.2-5.2); BILIRUBIN,TOTAL 0.4 MG/DL (0.2-1.0); C REACTIVE PROTEIN QUANTITATIV 12.4 MG/DL (0.00-0.30); CREATININE FOR GFR 1.55 MG/DL (0.70-1.30); GLOMERULAR FILTRATION RATE 46.3 (>42); POTASSIUM SERUM 4.8 MEQ/L (3.5-5.1); TOTAL PROTEIN 5.1 GM/DL (6.4-8.2)
[2020-10-07 07:03] LABS: ABG BASE EXCESS -1.2 (-2.0-2.0); ABG O2 SATURATION 98.3 % (95.0-99.0); ABG PARTIAL PRESSURE CO2 58.2 mmHg (35.0-45.0); ABG STANDARD HCO3 23.5 MEQ/L (22.0-26.0); ABG TOTAL CO2 27.8 MEQ/L (23.0-31.0); ABG pH (ARTERIAL) 7.268 UNITS (7.350-7.450)
[2020-10-07] MEDS: ENOXAPARIN 100MG/1ML SYRINGE (J1650 PER 10MG) SC SCH ×2 (08:18→21:23)
[2020-10-07] MEDS: CHLORHEXIDINE GLUCONATE 0.12 % 15ML UDC (PERIDEX ORAL RINSE) MT SCH ×2 (08:18→21:23)
[2020-10-07] MEDS: PANTOPRAZOLE 40MG VIAL (C9113 PER 1) IV SCH (08:18)
[2020-10-07] MEDS: dexameTHASONE 4 MG/ML 1ML VIAL (J1100 PER 1MG) IV SCH (08:19)
[2020-10-07] MEDS: MORPHINE 2 MG/ML 1ML VIAL (J2270) IV PRN (08:19)
[2020-10-07] MEDS: ASPIRIN 81 MG CHEW TABLET PO SCH (08:19)
[2020-10-07] MEDS ORDERED: D5W 1,000 ML IV SCH (11:00)
[2020-10-07] MEDS: LACRILUBE (AKWA TEARS) OPHTH OINT 3.5 GM OU SCH ×3 (12:41→21:23)
--- NOTE | 2020-10-07 16:16 | CCN ---
DATE: 10/06/2020 SUBJECTIVE: The patient was seen and examined this morning during bedside rounds. Overnight, the patient had an episode of desaturation after repositioning. The patient does frequently desaturate with repositioning, but will usually recover his O2 sats after a period of time. However, last night, he remains in the high 80s despite increasing FiO2 to 100%. His PEEP was therefore increased from 10 to 12, and he was given Lasix 20 mg IV yesterday evening. His oxygenation did improve and this morning on 90% FiO2, he was satting around 94%. The patient otherwise continues to be sedated on propofol, as well as with Versed p.r.n. Patient yesterday evening and this morning has minimal secretions with suctioning from the endotracheal tube. He did not have any fevers overnight. OBJECTIVE: VITAL SIGNS: Temperature 97.3, pulse 63, respirations 27, blood pressure 101/53, O2 sat 93% on 90% FiO2. INTAKE/OUTPUT: Ins 2.8 liters, out 1.7 liters. GENERAL: Patient is intubated and sedated. He is deeply sedated and responds only to painful stimuli, but does not open his eyes spontaneously or follow commands. HEENT: Normocephalic, atraumatic. Pupils are small, but equal and reactive to light bilaterally. There are moist mucous membranes noted. NECK: Supple. No palpable cervical adenopathy. No JVD. He has a right IJ triple lumen in place. CARDIAC: Regular rate and rhythm. Normal S1, S2. Unable to appreciate any murmurs. PULMONARY: Diminished breath sounds bilaterally with some coarse ventilator breath sounds. No wheezes, rales, or rhonchi noted. ABDOMEN: Soft, nontender, and nondistended. There are positive bowel sounds present. The patient is on tube feeds, although he did have some increased residuals this morning. EXTREMITIES: There is +1 pitting edema in the lower extremities bilaterally. There appears to be improvement in the left lower extremity cellulitis. LABORATORY DATA: WBC 7.2, hemoglobin 7.9, platelets 163,000. Chemistry: Sodium 144, potassium 4.6, chloride 109, bicarb 32, BUN 55, creatinine 1.37, glucose 169, magnesium 2.5, calcium 7.7, phos 4.6, AST 52, ALT 75. CRP increased to 14. Albumin is 1.6. D-dimer increased to 3992. ABG with pH of 7.308, pCO2 of 56.3, pO2 of 83.8. ASSESSMENT AND PLAN: Mr. Damian is a 80-year-old male with a history of dementia who presented initially with complaints of mechanical falls. The patient was then found to be febrile and was positive for COVID-19. He also had acute hypoxemic respiratory failure, which did require intubation and mechanical ventilation. Neurologic: The patient has a history of dementia at baseline, as well as tremors. He is currently intubated and sedated with propofol with a target [place] of 3-4 with Versed p.r.n. for agitation. - Will continue with morphine p.r.n. for pain control. - Patient was on paralytics for his severe hypoxemic respiratory failure. He is off of the paralytics now as he did have improvement initially in his oxygenation. - Will continue patient with deep sedation given his hypoxia, as well as with proning. Cardiac: Patient has not reported cardiac history. He does not have any evidence of cardiac injury, although he did have increased BNP and was on diuretics. - Patient was given Lasix 20 mg IV yesterday and did have increased urine output, but is still net positive. His blood pressure has remained borderline, although has not required any vasopressor administration. - Will check a repeat BNP, as well as troponin today. - Continue with aspirin 81 mg daily. Pulmonary: Patient with acute hypoxemic respiratory failure in the setting of COVID pneumonia. He also had increased procalcitonin with suspected bacterial infection as well, possibly with a superimposed bacterial pneumonia versus cellulitis in his lower extremity. Patient was also noted to have elevated D- dimer and given his severe hypoxemia and being prothrombotic with his COVID infection, he was started on empiric anticoagulation with Lovenox. - Patient was improving with his oxygen requirements after he had been paralyzed initially for his severe respiratory failure and acute respiratory distress syndrome (ARDS). Overnight, however, patient had worsening hypoxia and required increased FiO2 and positive end-expiratory pressure (PEEP). Given his worsening hypoxia, will start patient on proning with 16 hours prone and 6 hours supine if tolerated. - Yesterday, patient did have elevated peak inspiratory pressures and he was started on additional bronchodilators with improvement. His plateau is elevated, but less than 30. - Will continue patient with bronchodilators with Albuterol and ipratropium HFA. - Will continue to wean patient down on FiO2 as tolerated with his pronation. - Will continue with dexamethasone for his severe COVID pneumonia. He was increased to 6 mg IV daily and will continue for a total 10 day course. - Will continue remdesivir for a 10 days course with close monitoring of his liver function tests (LFTs). - Will continue patient on full dose anticoagulation with Lovenox. His weight appears to be changed from his admissions, however, and so we will increase his Lovenox to reflect his current weight with the dosing of 1 mg/kg b.i.d. - Will continue with broad-spectrum antibiotics. Patients procalcitonin was trending down; however, his CRP increased and he did have a fever yesterday. His antibiotics yesterday were broadened to Zosyn and vancomycin. His sputum culture is pending. Gastrointestinal (GI): Patient was tolerating tube feeds; however, he did have some increased residual this morning. Will hold on tube feeds for now as well as we are starting pronation. - Will continue the Protonix for GI prophylaxis. - Continue monitoring LFTs while on remdesivir. Endocrine/Renal: Patient has evidence of some third spacing and pitting edema. He was given a dose of Lasix with his worsening hypoxia overnight for concern for possible pulmonary edema contributing. He was noted, however, to have increased creatinine and BUN with diuresis. So, we will hold off with further doses for now. He does continue to be severely hypoalbuminemic and so would consider supplementation with albumin to help with his third spacing. - We are attempting to get consent from patients next of kin for blood products. - Will continue to monitor electrolytes and replete as needed. - Continue with fingerstick every 6 hours with sliding scale coverage as needed. Deep vein thrombosis (DVT) prophylaxis with Lovenox full dose anticoagulation. Code status: DO NOT RESUSCITATE WITH TRIAL INTUBATION. Total critical care time spent not including procedures approximately one hour and 15 minutes. Will attempt to discuss with patients next of kin his goals of care, as he was a trial intubation initially. MTDD
[2020-10-07] MEDS ORDERED: AMINO AC/ELECTROLYTE/DEX/CALC 2,000 ML IV SCH (18:00)
[2020-10-07] MEDS: REMDESIVIR (INVESTIGATIONAL) 100 MG in NS 230 ML IV SCH (18:11)
[2020-10-08] VITALS (28 sets, daily range): BP systolic 94–126; BP diastolic 47–58
[2020-10-08] MEDS: propofoL 1,000 MG in IV 1 EA IV SCH ×6 (00:22→21:09)
[2020-10-08] MEDS: HumaLOG INSULIN (NovoLOG) PER UNIT SC SCH ×4 (00:22→17:51)
[2020-10-08] MEDS: ALBUTEROL 90 MCG/ACT 8GM HFA INHALER INH SCH ×6 (00:39→21:31)
[2020-10-08] MEDS: MIDAZOLAM INJ 2MG/2ML VIAL (J2250 PER 1MG) IV PRN (04:11)
[2020-10-08] MEDS ORDERED: VANCOMYCIN HCL 1,000 MG, VIAL MATE ADAPTER 1 EACH in D5W 250 ML IV SCH (05:00)
[2020-10-08 05:21] LABS: ABG HCO3 28.8 MEQ/L (22.0-26.0); ABG O2 SATURATION 96.7 % (95.0-99.0); ABG PARTIAL PRESSURE CO2 59.6 mmHg (35.0-45.0); ABG STANDARD HCO3 26.2 MEQ/L (22.0-26.0); ABG TOTAL CO2 30.6 MEQ/L (23.0-31.0); ABG pH (ARTERIAL) 7.302 UNITS (7.350-7.450)
[2020-10-08 05:39] LABS: HEMATOCRIT 21.8 % (42.0-52.0); MEAN CORPUSCULAR HEMOGLOBIN 31.1 pg (27.0-33.0); MEAN CORPUSCULAR HGB CONC 31.7 g/dl (32.0-36.5); MEAN CORPUSCULAR VOLUME 98.2 fl (80.0-96.0); PLATELET COUNT, AUTOMATED 175 10^3/uL (150-450); RED BLOOD COUNT 2.22 10^6/uL (4.30-6.10); WHITE BLOOD COUNT 10.6 10^3/uL (4.0-10.0)
[2020-10-08 05:41] LABS: HEMOGLOBIN 6.9 g/dl (13.5-17.5)
[2020-10-08] MEDS: PIPERACILLIN/TAZOBACTAM SOD 3.375 GM in D5W MINI-BAG PLUS 50 ML IV SCH (06:03)
[2020-10-08 06:06] LABS: ALBUMIN 1.7 GM/DL (3.2-5.2); BILIRUBIN,TOTAL 0.4 MG/DL (0.2-1.0); CALCIUM LEVEL 7.5 MG/DL (8.8-10.2); CREATININE FOR GFR 2.28 MG/DL (0.70-1.30); GLOMERULAR FILTRATION RATE 29.6 (>42); POTASSIUM SERUM 4.6 MEQ/L (3.5-5.1); TOTAL PROTEIN 4.9 GM/DL (6.4-8.2)
[2020-10-08 06:52] LABS: LYMPHOCYTES 2 % (16-44); METAMYELOCYTES 3 % (0-0); MONOCYTES 1 % (0-5); MYELOCYTES 1 % (0-0); NEUTROPHILS 91 % (28-66); OVALOCYTES 1+; PLATELET ESTIMATE NORMAL (NORMAL)
[2020-10-08 06:53] LABS: TEAR DROP CELLS 1+
[2020-10-08] MEDS: ENOXAPARIN 100MG/1ML SYRINGE (J1650 PER 10MG) SC SCH ×2 (08:21→20:14)
[2020-10-08] MEDS: CHLORHEXIDINE GLUCONATE 0.12 % 15ML UDC (PERIDEX ORAL RINSE) MT SCH ×2 (08:22→20:14)
[2020-10-08] MEDS: dexameTHASONE 4 MG/ML 1ML VIAL (J1100 PER 1MG) IV SCH (08:25)
[2020-10-08] MEDS: PANTOPRAZOLE 40MG VIAL (C9113 PER 1) IV SCH ×2 (08:25→20:14)
[2020-10-08] MEDS: ASPIRIN 81 MG CHEW TABLET PO SCH (08:25)
[2020-10-08] MEDS: LACRILUBE (AKWA TEARS) OPHTH OINT 3.5 GM OU SCH ×3 (08:26→20:14)
[2020-10-08] MEDS ORDERED: PANTOPRAZOLE 40MG VIAL (C9113 PER 1) IV SCH (09:00)
[2020-10-08] MEDS ORDERED: NS 1,000 ML IV ONE (09:45)
--- NOTE | 2020-10-08 10:34 | CCN ---
DATE: 10/07/2020 SUBJECTIVE: The patient was seen and examined this morning during bedside rounds. Yesterday the patient tolerating proning at 16 hours and supine at 6 hours. He did have some edema around his eyes but no evidence of any skin breakdown or ulceration. He was able to be weaned down while prone to an FiO2 of 60%. With supine he did require increase up to 70% although his O2 saturation was 97% now on 70% FiO2 this morning. The patient has had improved drainage and mucus from his endotracheal tube with proning. He was hypothermic briefly overnight and required a Mirlande Hugger. This morning his temperature is improved and he was taken off the Mirlande Hugger. The patient's blood pressures have remained stable and he has not required any vasopressor administration. He is still deeply sedated on the proning protocol. OBJECTIVE: Vital signs: Temperature 99.2, pulse 87, respirations 18, blood pressure 99/49, O2 saturation 97% on 70% FiO2, 91% on 60% FiO2. Input 1.9 liters, output 2.2, net negative 236 mL. General: The patient is intubated and sedated. He is responsive to painful stimuli and does have a gag and cough reflex but he does not open his eyes spontaneously or follow commands. HEENT is normocephalic, atraumatic. He does have some periorbital edema as he is currently prone. There are moist mucous membranes noted. There is no significant skin breakdown around his mouth or where his ET tube is. Neck is supple, no JVD appreciated. He has a right IJ triple lumen in place. Cardiac regular rate and rhythm, normal S1, S2, unable to appreciate any murmurs. Pulmonary: Posteriorly the patient does have increased rhonchi bilaterally with some coarse breath sounds. There are no wheezes or rales. Abdomen unable to be palpated as he is prone. He does have ecchymosis on his lower back from previous falls prior to this hospitalization. Extremities: There is increased pitting edema in his hands and arms bilaterally. He does have +1 pitting edema in the lower extremities as well. The erythema on the left lower extremity appears improved. He does have some ecchymosis. LABS: WBC 9.7, hemoglobin 7.9, platelets 175. Chemistry: Sodium 147, potassium 4.8, chloride 110, bicarb is 29, BUN 60, creatinine 1.55, glucose 141. Albumin 1.8. CRP is trending down to 12.4. BNP increased to 767. ABG: A pH of 7.268, pCO2 58.2, pO2 127. ASSESSMENT AND PLAN: Mr. Damian is a 80-year-old male with a history of dementia who presented initially with complaints of mechanical falls. The patient was then found to be febrile as well as hypoxic and was positive for COVID-19. Despite treatment with dexamethasone as well as remdesivir he continued to have severe hypoxemia requiring intubation and mechanical ventilation. Neuro: History of dementia at baseline. The patient is currently intubated and sedated. - We will continue propofol for sedation with a target range 3-4 while on the pronation with Versed as needed for agitation and Morphine as needed for pain. - When the patient is supine, we will lighten sedation and we will perform a sedation vacation to assess his neurologic status. When he is prone, we will deepen his sedation. Cardiac: The patient has no reported cardiac history. He did have increased BNP and was given IV diuretics initially. The patients blood pressure has remained normotensive and he has not required any vasopressor administration. - The patients BNP increased slightly and he does have evidence of some increased edema likely due to third spacing with his hypoalbuminemia. - Would continue to monitor his urine output and would consider gentle diuresis as needed with close monitoring of his renal function. - Continue with Aspirin 81 mg daily. Pulmonary. The patient with acute hypoxemic respiratory failure in the setting of COVID pneumonia. The patient also had increased procalcitonin with suspected bacterial infection, possibly superimposed bacterial pneumonia versus cellulitis in his left lower extremity. The patient was also started on empiric anticoagulation given his hypoxemic respiratory failure as well as with elevated d-dimer and risk of being prothrombotic with his COVID pneumonia. - The patient was intubated and placed on mechanical ventilation for his severe hypoxemic respiratory failure. He initially was on paralytics given his severe hypoxemia. However, he was weaned off the paralytic. The patient was noted to have worsening hypoxia so he was started on pronation protocol yesterday which he tolerated well. - The patient tolerated 16 hours prone and 6 hours supine yesterday with improvement of his FiO2. He did also have increased mucus clearance with the pronation. We will attempt another 16 hours prone today but we will increase his time supine to 8 hours. He has been able to wean down to FiO2 now of 60%. - The patient is on volume control settings currently. His ABG does show some increased hypercapnia although still within permissive range. We will increase his respiratory rate slightly. He will be on settings of 440/20/12 and 60. - We will continue to wean down his FiO2 and PEEP as tolerated to maintain a goal PaO2 above 55. His plateau pressures are at goal and less than 30. - We will continue with bronchodilators with Albuterol and ipratropium HFA. - We will continue with dexamethasone 6 mg IV daily for a total ten day course. - We will continue with remdesivir with close monitoring of his LFTs for a total ten day course. - The patients antibiotics were broadened when he had a fever. He is on Vancomycin and Zosyn. His repeat sputum culture showed yeast but we will await final culture results. We will repeat procalcitonin today to aid in deescalation of his antibiotics. - We will continue with anticoagulation. His Lovenox is increased to be according to his weight with a dose of 1 mg/kg twice a day for full dose anticoagulation. We will repeat d-dimer to continue to trend. GI: The patient was on tube feeds initially. However, they have been held with the proning. We will start him on TPN. He does have hypoalbuminemia and nutritional deficiency, some of which was chronic given his dementia prior to his admission. - the patient's LFTs have been stable while on remdesivir. We will continue to monitor daily. Endocrine/renal: The patient has had increasing BUN and creatinine. He does have good urine output, however, and has been net negative. We will give gentle hydration with D5W until his TPN is on and then would discontinue. Continue to monitor urine output and consider gentle diuresis if significant evidence of third spacing. -We will continue to monitor electrolytes and repeat as needed. He does have some mild hypernatremia and hyperchloremia which will likely improve with D5W. - We will continue with frequent glucose checks every six hours with sliding scale coverage as needed. DVT prophylaxis with Lovenox full dose before meals. Code status: DO NOT RESUSCITATE with a trial intubation. The patient's stepdaughter and his were updated on his status. The patient will have been intubated for almost a week at this point and we did discuss there is some concern that he will have difficulty weaning from the ventilator given his continued O2 requirements as well as his baseline mental status prior to his intubation. The family would like to discuss his goals of care further. Total critical care time spent not including procedures approximately 55 minutes. YONATHAN
--- NOTE | 2020-10-08 13:30 | CCN ---
DATE: 10/08/2020 SUBJECTIVE: The patient was seen and examined this morning during bedside rounds. The patient tolerated proning at 16 hours yesterday and was able to be weaned down on his FiO2 to 60% with a PEEP of 10. He was then supined for 8 hours and initially had only required a slight increase in his FiO2; however, with weaning sedation and sedation vacation, the patient became agitated, was coughing, and desatted requiring increased FiO2 to 70%. He was not following commands with the sedation vacation. The patient was placed back prone today and we will continue to attempt proning at 14 hours with supine for 10 hours. Overnight, the patient was also noted to have blood-tinged secretions from the OG tube. Patient was given one unit of PRBC transfusion earlier this morning. OBJECTIVE: VITAL SIGNS: Temperature 97.8, pulse rate 70, respirations 22, blood pressure 98/50, O2 sat was 88% on 70% FiO2. Ins 1.7, out 1.4. GENERAL: Patient is intubated and sedated. He is responsive to painful stimuli only with gag reflex. HEENT: Normocephalic, atraumatic. Patient has periorbital edema as he is prone. He does have moist mucous membranes. His OG tube was draining some blood-tinged secretions. NECK: Supple. No JVD noted. He has a right IJ triple lumen in place. CARDIAC: Regular rate and rhythm. Normal S1, S2. Unable to appreciate any murmurs. PULMONARY: Posteriorly the patient does have increased rhonchi bilaterally with coarse breath sounds. ABDOMEN: Not easily palpated as he is prone. He does have ecchymosis on his lower back from previous falls prior to his hospitalization. EXTREMITIES: Patient has increased pitting edema in his hands and arms bilaterally. He does also have +1 pitting edema in the lower extremities as well. He has some erythema in the left lower extremity and ecchymosis, which appears improved. LABORATORY DATA: WBC 10.6, hemoglobin 6.9, platelets 175,000. Chemistry with sodium 144, potassium 4.6, chloride 107, bicarb 31, BUN 90, creatinine 2.28, glucose 154. CRP 9.33. Calcium 7.5, albumin 1.7, AST and ALT 54 and 50. ABG with pH of 7.302, pCO2 of 59.6, and pO2 of 93.0. ASSESSMENT: Mr. Damian is a 80-year-old male with a past medical history of dementia who presented initially with complaints of mechanical falls. The patient was then found to be febrile, as well as hypoxic and was positive for COVID-19. The patient was treated with dexamethasone, as well as remdesivir; however, continued to have worsening hypoxemic respiratory failure requiring intubation and mechanical ventilation. Neurologic: The patient has a history of dementia at baseline. He is on propofol for sedation with versed p.r.n. for agitation and morphine p.r.n. for pain control. - Patient had a sedation vacation yesterday evening while he was supine and he became agitated and desatted and required p.r.n. Versed. Given his baseline mental status, would likely have difficulty with decreasing his sedation for weaning trials. Cardiac: Patient has no reported cardiac history. He has evidence of third- spacing likely related to his hypoalbuminemia. He was given intravenous (IV) diuretic as he did have an elevated BNP. However, there has been concern with his renal function and he has not received any further diuresis. - Patient does appear to be slightly negative on his own. Would give a bolus of intravenous (IV) fluids and continue to monitor his BNP, as well as renal function. - Continue with aspirin 81 mg daily. Pulmonary: Patient with acute hypoxemic respiratory failure in the setting of COVID pneumonia. He also had increased procalcitonin initially with suspected bacterial infection, possibly superimposed bacterial pneumonia versus a cellulitis in his lower extremity. He also was started on empiric anticoagulation given his hypoxemic respiratory failure, as well as with elevated D-dimer and being prothrombotic with his COVID infection. - Patient is currently intubated on mechanical ventilation for his severe hypoxemic respiratory failure. He initially was on paralytics; however, was weaned off when he had some improvement in his oxygenation. Patient then had worsening hypoxia and was started on proning protocol and was able to wean down on his FiO2, particularly when prone; however, he does desaturate when supine. He was doing well until attempt at sedation vacation while supine and since then, has required some increased FiO2. - Will continue patient on mechanical ventilation on volume control with settings of 440/20/10 and 65. Will continue to wean down his FiO2 as tolerated. We were able to wean down his positive end-expiratory pressure (PEEP) slightly. His vent settings were also adjusted given his increased hypercapnea and his arterial blood gases (ABGs) have shown some improvement with some permissive hypercapnea allowed. - Will continue with bronchodilator with Albuterol and ipratropium HFA. - Patient will have completed dexamethasone a 10 day course today and will discontinue. - Patient will also have completed remdesivir a 10 day course day, which will be discontinued. - Will continue with anticoagulation with Lovenox at 1 mg/kg b.i.d. for full dose anticoagulation. - Will continue patient with vancomycin and Zosyn pending results of his repeat procalcitonin. Will renally dose his Zosyn. - Will continue to follow up with patients family about goals of care given difficulty weaning down his FiO2. - Will continue him with pronation and supine, but will attempt to increase the time supine. Gastrointestinal: Peripheral parenteral nutrition (PPN) for nutritional support. Will continue to monitor his liver function tests (LFTs) although once he has completed the remdesivir, he should not have issues with transaminitis. - Patients orogastric (OG) tube did have bloody output likely due to suctioning trauma and being on anticoagulation. - His proton pump inhibitor (PPI) will be increased to b.i.d. and will decrease the suction. Endocrine/Renal: Patient with increasing BUN and creatinine. Some of the increased BUN may be in the setting of gastrointestinal (GI) bleed. He has been net negative; however, without diuresis, so we will give a bolus of normal saline 1 liter and continue to monitor his urine output and renal function. He does have third-spacing related to hypoalbuminemia. - Continue with fingerstick glucose checks every 6 hours with sliding scale coverage as needed. Deep vein thrombosis (DVT) prophylaxis with full dose Lovenox. Code status: DO NOT RESUSCITATE WITH TRIAL OF INTUBATION. Total critical care time spent not including procedures approximately 50 minutes. MTDD
[2020-10-08] MEDS: PIPERACILLIN/TAZOBACTAM SOD 2.25 GM in D5W MINI-BAG PLUS 50 ML IV SCH ×2 (14:01→19:34)
[2020-10-08] MEDS: REMDESIVIR (INVESTIGATIONAL) 100 MG in NS 230 ML IV SCH (17:34)
[2020-10-08] MEDS ORDERED: AMINO AC/ELECTROLYTE/DEX/CALC 2,000 ML IV SCH (18:00)
[2020-10-09] VITALS (26 sets, daily range): BP systolic 93–118; BP diastolic 49–56; O2SAT 85–87
[2020-10-09] MEDS: ALBUTEROL 90 MCG/ACT 8GM HFA INHALER INH SCH ×6 (00:10→19:33)
[2020-10-09] MEDS: HumaLOG INSULIN (NovoLOG) PER UNIT SC SCH ×4 (00:18→18:00)
[2020-10-09] MEDS: MIDAZOLAM INJ 2MG/2ML VIAL (J2250 PER 1MG) IV PRN ×6 (00:22→17:58)
[2020-10-09] MEDS ORDERED: PROPOFOL 1,000 MG/100 ML VIAL As Ordered ONE (00:25)
[2020-10-09] MEDS: propofoL 1,000 MG in IV 1 EA IV SCH ×4 (00:56→17:26)
[2020-10-09] MEDS: PIPERACILLIN/TAZOBACTAM SOD 2.25 GM in D5W MINI-BAG PLUS 50 ML IV SCH ×4 (02:09→20:27)
[2020-10-09 05:32] LABS: ABG BASE EXCESS 0.3 (-2.0-2.0); ABG HCO3 28.6 MEQ/L (22.0-26.0); ABG O2 SATURATION 96.8 % (95.0-99.0); ABG PARTIAL PRESSURE O2 99.4 mmHg (75.0-100.0); ABG STANDARD HCO3 24.8 MEQ/L (22.0-26.0); ABG TOTAL CO2 30.7 MEQ/L (23.0-31.0); HEMATOCRIT 24.9 % (42.0-52.0); MEAN CORPUSCULAR HGB CONC 32.1 g/dl (32.0-36.5); MEAN CORPUSCULAR VOLUME 96.5 fl (80.0-96.0); PLATELET COUNT, AUTOMATED 174 10^3/uL (150-450); RED BLOOD COUNT 2.58 10^6/uL (4.30-6.10); WHITE BLOOD COUNT 14.2 10^3/uL (4.0-10.0)
[2020-10-09 05:34] LABS: ABG PARTIAL PRESSURE CO2 69.1 mmHg (35.0-45.0); ABG pH (ARTERIAL) 7.235 UNITS (7.350-7.450)
[2020-10-09 05:56] LABS: LYMPHOCYTES 4 % (16-44); METAMYELOCYTES 3 % (0-0); MONOCYTES 3 % (0-5); MYELOCYTES 1 % (0-0); NEUTROPHILS 83 % (28-66); PLATELET ESTIMATE NORMAL (NORMAL); POLYCHROMASIA 1+
[2020-10-09 05:57] LABS: OVALOCYTES 1+; POIKILOCYTOSIS 1+; TEAR DROP CELLS 1+
[2020-10-09 06:08] LABS: ALBUMIN 1.6 GM/DL (3.2-5.2); BILIRUBIN,TOTAL 0.5 MG/DL (0.2-1.0); C REACTIVE PROTEIN QUANTITATIV 8.34 MG/DL (0.00-0.30); CALCIUM LEVEL 7.1 MG/DL (8.8-10.2); CREATININE FOR GFR 2.46 MG/DL (0.70-1.30); GLOMERULAR FILTRATION RATE 27.2 (>42); TOTAL PROTEIN 4.8 GM/DL (6.4-8.2)
[2020-10-09] MEDS: CHLORHEXIDINE GLUCONATE 0.12 % 15ML UDC (PERIDEX ORAL RINSE) MT SCH ×2 (08:16→21:01)
[2020-10-09] MEDS: PANTOPRAZOLE 40MG VIAL (C9113 PER 1) IV SCH ×2 (08:17→21:01)
[2020-10-09] MEDS: ASPIRIN 81 MG CHEW TABLET PO SCH (08:17)
[2020-10-09] MEDS: ENOXAPARIN 100MG/1ML SYRINGE (J1650 PER 10MG) SC SCH ×2 (08:18→21:01)
[2020-10-09] MEDS: LACRILUBE (AKWA TEARS) OPHTH OINT 3.5 GM OU SCH ×3 (08:57→21:02)
[2020-10-09] MEDS ORDERED: FUROSEMIDE 20MG/2ML VIAL (J1940) IV ONE (09:30)
[2020-10-09] MEDS ORDERED: VANCOMYCIN HCL 750 MG, VIAL MATE ADAPTER 1 EACH in D5W 250 ML IV SCH (16:00)
[2020-10-10] VITALS (11 sets, daily range): BP systolic 86–98; BP diastolic 48–55
[2020-10-10] MEDS: ALBUTEROL 90 MCG/ACT 8GM HFA INHALER INH SCH ×2 (00:07→04:31)
[2020-10-10] MEDS: PIPERACILLIN/TAZOBACTAM SOD 2.25 GM in D5W MINI-BAG PLUS 50 ML IV SCH ×2 (02:08→09:18)
[2020-10-10] MEDS: propofoL 1,000 MG in IV 1 EA IV SCH ×3 (02:08→07:59)
[2020-10-10] MEDS: HumaLOG INSULIN (NovoLOG) PER UNIT SC SCH ×2 (05:22)
[2020-10-10 05:28] LABS: HEMATOCRIT 24.4 % (42.0-52.0); HEMOGLOBIN 8.1 g/dl (13.5-17.5); MEAN CORPUSCULAR HGB CONC 33.2 g/dl (32.0-36.5); MEAN CORPUSCULAR VOLUME 96.4 fl (80.0-96.0); PLATELET COUNT, AUTOMATED 165 10^3/uL (150-450); RED BLOOD COUNT 2.53 10^6/uL (4.30-6.10); WHITE BLOOD COUNT 14.5 10^3/uL (4.0-10.0)
[2020-10-10 05:35] LABS: EOSINOPHILS 2 % (0-3); LYMPHOCYTES 6 % (16-44); METAMYELOCYTES 3 % (0-0); MONOCYTES 3 % (0-5); MYELOCYTES 4 % (0-0); NEUTROPHILS 78 % (28-66)
[2020-10-10 05:36] LABS: ANISOCYTOSIS 1+; OVALOCYTES 1+; PLATELET ESTIMATE NORMAL (NORMAL); POIKILOCYTOSIS 1+; TEAR DROP CELLS 1+
[2020-10-10 06:23] LABS: ALBUMIN 1.5 GM/DL (3.2-5.2); BILIRUBIN,TOTAL 0.7 MG/DL (0.2-1.0); CALCIUM LEVEL 7.2 MG/DL (8.8-10.2); CREATININE FOR GFR 2.98 MG/DL (0.70-1.30); GLOMERULAR FILTRATION RATE 21.8 (>42); POTASSIUM SERUM 5.3 MEQ/L (3.5-5.1)
[2020-10-10] MEDS: MORPHINE 2 MG/ML 1ML VIAL (J2270) IV PRN ×2 (08:21→11:09)
[2020-10-10] MEDS: ASPIRIN 81 MG CHEW TABLET PO SCH (09:42)
[2020-10-10] MEDS: LACRILUBE (AKWA TEARS) OPHTH OINT 3.5 GM OU SCH (09:43)
[2020-10-10] MEDS: ENOXAPARIN 100MG/1ML SYRINGE (J1650 PER 10MG) SC SCH (09:43)
[2020-10-10] MEDS: PANTOPRAZOLE 40MG VIAL (C9113 PER 1) IV SCH (09:43)
[2020-10-10] MEDS: CHLORHEXIDINE GLUCONATE 0.12 % 15ML UDC (PERIDEX ORAL RINSE) MT SCH (09:43)
[2020-10-10] MEDS: MIDAZOLAM INJ 2MG/2ML VIAL (J2250 PER 1MG) IV PRN (11:09)
--- NOTE | 2020-10-10 13:33 | CCN ---
DATE: 10/10/2020 SUBJECTIVE: Overnight patient continued to require increased amounts of FiO2. He continues to be deeply sedated and has been responsive to painful stimuli only but is not following commands. OBJECTIVE: Vitals: Temperature 97.7, pulse 73, respirations 22, blood pressure 86/48, O2 sat 93% on 85% FiO2. Ins 1.7, out 1.4, net positive 282. General: Patient is intubated and sedated. He has cranial reflexes and is responsive minimally to painful stimulation but is not opening eyes or following commands. HEENT: Normocephalic/atraumatic. Moist mucous membranes. He has an OG tube in place. Neck is supple. Trachea is midline. He has a right IJ triple lumen in place. Cardiac: Regular rate and rhythm, normal S1 and S2. Unable to appreciate murmurs. Pulmonary: Coarse ventilated breath sounds anteriorly. No wheezes or rhonchi. Abdomen: Soft, nontender, nondistended. No palpable organomegaly. Extremities: There is pitting edema in the lower extremities bilaterally as well as edema in his hands. LABORATORY DATA: WBC 14.5, hemoglobin 8.1, platelets 155. Chemistries: Sodium 144, potassium 5.3, chloride 109, bicarb 27, BUN 128, creatinine 2.98, glucose 88, calcium 7.2, AST 75, ALT 44. CRP increased to 18. Albumin 1.5. ABG: pH 7.235, pCO2 69.1, pO2 99.4. ASSESSMENT/PLAN: The patient is a 80-year-old male with a past medical history of dementia who presented initially in the setting of falls. Patient was then found to be febrile and hypoxic with COVID-19 pneumonia. He was treated with dexamethasone as well as Remdesivir. However, he continued to have worsening hypoxemic respiratory failure and ARDS requiring intubation and mechanical ventilation. Patient had severe hypoxemic respiratory failure and ARDS requiring paralytics to help improve oxygenation. He was also receiving the pronation protocol as well given his severe ARDS. Patient had difficulty with weaning his FiO2 as well as tolerating weaning trials with sedation as he does become agitated and will desaturation very quickly with any lightening of sedation. Yesterday patient's was updated on his condition, particularly the difficulty with weaning from the ventilator. Patient's MOLST on admission had stated his wishes were to be A DNR with only a trial of intubation. We discussed with the as he had been intubated for more than a week, and given the difficulty with weaning from a ventilator and likelihood of requiring a tracheostomy placement, patient's decided to palliatively extubate the patient and make him comfort measures only based on his previous wishes. Patient's wanted some time to contact family, and his palliative extubation was scheduled for this morning. Patient was given medications for comfort and anxiety, and he was palliatively extubated earlier this morning. Patient's time of was then called at 11:37 a.m. Patient's was notified of his passing. CODE STATUS: DNR/DNI. Comfort measures only. Total critical care time spent not including procedures approximately 40 minutes. YONATHAN
--- NOTE | 2020-10-12 21:03 | DS.PDOC ---
Discharge Summary General Date of Admission Sep 27, 2020 at 18:16 Date of Discharge 10/10/20 Discharge Summary PROCEDURES PERFORMED DURING STAY: Endotracheal intubation. Central venous line placement. ADMITTING DIAGNOSES: 1. Sepsis 2. COVID-19 pneumonia 3. Dementia DISCHARGE DIAGNOSES: 1. Sepsis 2. COVID-19 pneumonia 3. Acute hypoxemic respiratory failure and ARDS requiring mechanical ventilation 4. Bacterial pneumonia 5. Cellulitis 6. Dementia 7. Acute renal failure 8. Acute GI bleed 9. Presumed VTE COMPLICATIONS/CHIEF COMPLAINT: FALLS. HISTORY OF PRESENT ILLNESS: Patient is a 80 years old male with past medical history of dementia who presented to the hospital with a history of multiple mechanical falls prior to admission. According to his the patient had been having increasing confusion from his baseline and in the days up to admission was having multiple mechanical falls. She had denied other symptoms of fever or chest pain, no coughing, nausea, vomiting or diarrhea. According to his patient haven't seen doctors for years HOSPITAL COURSE: Patient's initial imaging did not show evidence of acute stroke or bleed. He was noted to have elevated CPK and BRYAN on admission. Patient then developed fevers and acute hypoxemic respiratory failure and was found to be COVID-19 positive with CXR consistent with COVID pneumonia. Critical care was consulted. He was started on dexamethasone and remdesivir and antibiotics for superimposed bacterial pneumonia with elevated procalcitonin. Patient was initially on vapotherm for oxygen supplemenation however had worsening hypoxia secondary to ARDS requiring intubation and mechanical ventilation. He was also started on anticoagulation for possible VTE given his elevated D-dimer and severe hypoxia as well as prothrombotic state with COVID19. Patient's antibiotics were also broadened to cover for MRSA with possible LE cellulitis. Patient had severe ARDS on the ventilator and was paralyzed as well as later proned to improve his oxygenation. Patient continued to require high amounts of FIO2 and with his baseline dementia was difficult to perform weaning trials on the ventilator. Patient had signed a MOLST prior to his intubation stating he was a DNR with trial of intubation. Patient's then determined that as he had been on mechanical ventilator for more than a week and most likely would have continued prolonged ventilation and possible tracheostomy that given his baseline mental status and prior wishes patient was planned for a palliative extubation and comfort measures only. DISCHARGE MEDICATIONS: Please see below. ALLERGIES: Please see below. PHYSICAL EXAMINATION ON DISCHARGE: VITAL SIGNS: Please see below. Vitals: Temperature 97.7, pulse 73, respirations 22, blood pressure 86/48, O2 sat 93% on 85% FiO2. Ins 1.7, out 1.4, net positive 282. General: Patient is intubated and sedated. He has cranial reflexes and is responsive minimally to painful stimulation but is not opening eyes or following commands. HEENT: Normocephalic/atraumatic. Moist mucous membranes. He has an OG tube in place. Neck is supple. Trachea is midline. He has a right IJ triple lumen in place. Cardiac: Regular rate and rhythm, normal S1 and S2. Unable to appreciate murmurs. Pulmonary: Coarse ventilated breath sounds anteriorly. No wheezes or rhonchi. Abdomen: Soft, nontender, nondistended. No palpable organomegaly. Extremities: There is pitting edema in the lower extremities bilaterally as wellas edema in his hands. LABORATORY DATA: Please see below. IMAGING: CXR 10/02/20- Extensive bilateral interstitial infiltrate versus edema. Right IJ line in place. No evidence of pneumothorax. Endotracheal and nasogastric tubes remain in place. Head CT 09/27/20 1. Chronic small vessel ischemic changes, stable. No acute infarct. 2. Mild ventriculomegaly with proportionate cerebral atrophy, unchanged. No intra or extra-axial hemorrhage, mass or mass effect. 3. No fracture skull base or calvarium. Some atherosclerotic calcifications of the vertebrobasilar arteries and minor ethmoid sinus mucosal thickening. Other sinuses clear. PROGNOSIS: Poor- DISCHARGE PLAN: DISPOSITION: . DISCHARGE INSTRUCTIONS: 1. None DISCHARGE CONDITION: TIME SPENT ON DISCHARGE: Greater than 30 minutes. Vital Signs/I&Os Vital Signs Date Time Temp Pulse Resp B/P (MAP) Pulse Ox O2 Delivery O2 Flow Rate FiO2 10/10/20 10:00 85 10/10/20 10:00 97.7 73 22 86/48 (61) 93 Ventilator 10/08/20 14:02 92.0 Microbiology Microbiology 10/05/20 Gram Stain - Final, Complete 10/05/20 Sputum Culture - Final, Complete Yeast Like Organism Discharge Medications Scheduled Aspirin (Aspirin) 81 Mg Tab.chew, 81 MG PO DAILY, (Reported) Azithromycin (Azithromycin) 250 Mg Tablet, 250 MG PO QPM, (Reported) Donepezil HCl (Donepezil HCl) 10 Mg Tablet, 10 MG PO DAILY, (Reported) Losartan Potassium (Losartan Potassium) 50 Mg Tablet, 50 MG PO DAILY, (Reported) Lovastatin (Lovastatin) 10 Mg Tablet, 10 MG PO QHS, (Reported) Melatonin (Melatonin) 5 Mg Tablet, 5 MG PO QHS, (Reported) Memantine HCl (Memantine HCl) 10 Mg Tablet, 10 MG PO BID, (Reported) Allergies Coded Allergies: No Known Allergies (Unverified , 09/27/20) SUZIE MEDELLIN MD Oct 12, 2020 21:03
== END 2020-10-10 12:40 | disposition expired | DRG 870 ==
LOC: M ED 11:55 → EDBD 11:55 → EEVIPCON 18:16 → M ED INP 18:16 → ENRESERV 20:35 → M MS5PR 22:57 → M ICU 09-29 15:30
PROVIDERS: ADMIT Internal Medicine; ATTEND Internal Medicine Pulmonary Disease
PROC: XW043E5 Introduction of Remdesivir Anti-infective into Central Vein, Percutaneous Approach, New Technology Group 5 (ICD-10-PCS; 2020-09-29)
PROC: 0BH17EZ Insertion of Endotracheal Airway into Trachea, Via Natural or Artificial Opening (ICD-10-PCS; principal; 2020-10-01)
PROC: 5A1955Z Respiratory Ventilation, Greater than 96 Consecutive Hours (ICD-10-PCS; 2020-10-01)
PROC: 02HV33Z Insertion of Infusion Device into Superior Vena Cava, Percutaneous Approach (ICD-10-PCS; 2020-10-02)
DX: A41.9 Sepsis, unspecified organism (principal); J96.01 Acute respiratory failure with hypoxia; G93.41 Metabolic encephalopathy; U07.1 COVID-19; J15.9 Unspecified bacterial pneumonia; J12.81 Pneumonia due to SARS-associated coronavirus; M62.82 Rhabdomyolysis; E87.0 Hyperosmolality and hypernatremia; L03.116 Cellulitis of left lower limb; E87.2 Acidosis; R29.6 Repeated falls; Z51.5 Encounter for palliative care; Z66 Do not resuscitate; E87.6 Hypokalemia; R68.0 Hypothermia, not associated with low environmental temperature; R25.1 Tremor, unspecified; I10 Essential (primary) hypertension; E86.0 Dehydration; R41.82 Altered mental status, unspecified; F03.90 Unspecified dementia, unspecified severity, without behavioral disturbance, psychotic disturbance, mood disturbance, and anxiety; Z79.82 Long term (current) use of aspirin; Z79.899 Other long term (current) drug therapy